=== PATIENT | female | born 1990 | race African-American/Black ===

== ENCOUNTER 2017-09-30 19:42 | Emergency (ER) | payer SELFPAY ==
[2017-09-30 20:06] VITALS: BP 110/62
--- NOTE | 2017-09-30 20:20 | EDM.PDOC ---
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 She landed hard on her but talks. She is known to be about 9 weeks gestation. When she got home and voided on wiping she appreciated bleeding per vagina. This is bright red and shortened thereafter started to develop some lower abdominal menstrual-like cramping pain. The thus far has essentially been complicated. No previous spotting or bleeding. She is nauseated often will have emesis in the evenings. Rapid 2 para 1 with one term delivery. She is currently seeing Dr. Muhammad as her up to nutrition. Last visit was a couple weeks ago which time he confirm the and dated it. She is due May 02, 2018. Currently she rates her pain as a 1 or 2 as far as the abdominal cramping is going . Onset: Today Onset Date: 09/30/17 Onset Time: 19:30 Duration: Minutes: Location: Reports: Other (BI-RADS bleeding per vagina) Quality: Reports: Other (Mild abdominal cramping pain.) Severity: Mild (Menstrual-like) Improves with: Reports: None Worsens with: Reports: None Context: Reports: Other (Noted bright red bleeding per vagina small quantity since she fell directly on her but talks at 1930 hrs. tonight. Associated development of mild lower abdominal cramping pain) Associated Symptoms: Reports: No Other Symptoms Treatments HYGIENE COORDINATOR: Reports: Other (see below) (None.) Pelvic Pain Score (Numeric/FACES): 2 - Related Data Allergies Allergy/AdvReac Type Severity Reaction Status Date / Time No Known Allergies Allergy Verified 09/30/17 20:06 Home Meds: Home Meds Progesterone,Micronized [Crinone] 1.125 gm VG BID 09/30/17 [History] oxyCODONE HCl/Acetaminophen [Percocet 5-325 mg Tablet] 1 - 2 each PO Q4H PRN # 16 tablet 09/30/17 [Rx] Past Medical History - Past Health History Medical/Surgical History: Denies 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 has fracture of the right foot and had surgery on the foot on . - Past Surgical History Musculoskeletal Surgical History: Reports: ORIF Social & Family History - Tobacco Use Smoking Status *Q: Never Smoker Second Hand Smoke Exposure: No - Caffeine Use Caffeine Use: Reports: Coffee, Soda - Alcohol Use Days Per Week of Alcohol Use: 0 - Recreational Drug Use Recreational Drug Use: No - Living Situation & Occupation Living situation: Reports: Single, with Significant Other, with Family Occupation: Unemployed ED ROS GENERAL - Review of Systems Review Of Systems: See Below HEENT: Reports: No Symptoms Respiratory: Reports: No Symptoms Cardiovascular: Reports: No Symptoms Endocrine: Reports: Fatigue GI/Abdominal: Reports: Abdominal Pain (Lower abdominal pain that developed tonight with associated spotting per vagina menstrual-like cramping. [place] mostly suprapubically. Nontender back) : Reports: Frequency, Other (Currently estimated to be 9 weeks .). Denies: Incontinence, Irregular Menses, Pain, Urgency, Urinary Retention Musculoskeletal: Reports: Other (Mild pain buttocks--left side greater than right where she fell tonight.) Neurological: Reports: No Symptoms Psychiatric: Reports: No Symptoms Hematologic/Lymphatic: Reports: No Symptoms Immunologic: Reports: No Symptoms ED EXAM - Physical Exam Exam: See Below Exam Limited By: No Limitations General Appearance: Alert, WD/WN, Anxious, Mild Distress Respiratory/Chest: No Respiratory Distress, Lungs Clear, Normal Breath Sounds, No Accessory Muscle Use, Chest Non-Tender Cardiovascular: Normal Peripheral Pulses, Regular Rate, Rhythm, No Edema, No Gallop, No Murmur, No Rub GI/Abdominal Exam: Normal Bowel Sounds, Soft, Non-Tender, No Organomegaly, No Abnormal Bruit, No Mass, Pelvis Stable (Female) Exam: Normal External Exam, Enlarged Uterus (Uterus is 9 weeks gestation clinically anteverted), Vaginal Bleeding (Scant bright red blood appreciated on gloved finger.). No: Cervical Dilatation (Cervix is closed) Heart Tones: Not Stephens (With stethoscope. She will be going for transvaginal ultrasound) Back Exam: Normal Inspection, Full Range of Motion. No: CVA Tenderness (L), CVA Tenderness (R) Extremities: Normal Inspection, Normal Range of Motion, Non-Tender, No Pedal Edema Neurological: Alert, Oriented, CN II-XII Intact, Normal Cognition, Normal Gait Course - Vital Signs Last Recorded V/S: Last Vital Signs Temp 36.0 C 09/30/17 20:03 Pulse 73 09/30/17 20:03 Resp 16 09/30/17 20:03 BP 110/62 09/30/17 20:03 Pulse Ox 100 09/30/17 20:03 - Orders/Labs/Meds Orders: Active Orders 24 hr Category Date Time Status OB Transvaginal [US] Stat Exams 09/30/17 20:12 Taken Labs: Laboratory Tests 09/30/17 09/30/17 09/30/17 Range/Units 20:35 20:37 20:37 WBC 8.30 (3.98-10.04) K/mm3 RBC 4.60 (3.98-5.22) M/mm3 Hgb 13.4 (11.2-15.7) gm/L Hct 38.7 (34.1-44.9) % MCV 84.1 (79.4-94.8) fl MCH 29.1 (25.6-32.2) pg MCHC 34.6 (32.2-35.5) g/dl RDW Std Deviation 42.5 (36.4-46.3) fL Plt Count 283 (182-369) K/mm3 MPV 10.2 (9.4-12.3) fl Neutrophils % (Manual) 50 (40-60) % Band Neutrophils % 0 (0-10) % Lymphocytes % (Manual) 34 (20-40) % Atypical Lymphs % 3 % Monocytes % (Manual) 8 (2-10) % Eosinophils % (Manual) 4 (0.7-5.8) % Basophils % (Manual) 1 (0.1-1.2) Platelet Estimate Adequate Plt Morphology Comment Normal RBC Morph Comment Normal Sodium 139 (136-145) mEq/L Potassium 3.3 L (3.5-5.1) mEq/L Chloride 104 (98-107) mEq/L Carbon Dioxide 22 (21-32) mEq/L Anion Gap 16.3 H (5-15) BUN 11 (7-18) mg/dL Creatinine 0.8 (0.55-1.02) mg/dL Est Cr Clr Drug Dosing 101.81 mL/min Estimated GFR (MDRD) > 60 (>60) mL/min BUN/Creatinine Ratio 13.8 L (14-18) Glucose 92 (74-106) mg/dL Calcium 9.6 (8.5-10.1) mg/dL Total Bilirubin 0.3 (0.2-1.0) mg/dL AST 14 L (15-37) U/L ALT 15 (14-59) U/L Alkaline Phosphatase 55 (46-116) U/L Total Protein 7.5 (6.4-8.2) g/dl Albumin 3.9 (3.4-5.0) g/dl Globulin 3.6 gm/dL Albumin/Globulin Ratio 1.1 (1-2) HCG, Quant 1877.0 mIU/mL Urine Color Yellow (Yellow) Urine Appearance Clear (Clear) Urine pH 6.0 (5.0-8.0) Ur Specific [place] > or = 1.030 (1.005-1.030) Urine Protein Negative (Negative) Urine Glucose (UA) Negative (Negative) Urine Ketones 2+ H (Negative) Urine Occult Blood 2+ H (Negative) Urine Nitrite Negative (Negative) Urine Bilirubin Negative (Negative) Urine Urobilinogen 0.2 (0.2-1.0) Ur Leukocyte Esterase Negative (Negative) Urine RBC 0-5 (0-5) /hpf Urine WBC 0-5 (0-5) /hpf Ur Epithelial Cells 0-5 (0-5) /hpf Urine Bacteria Few (FEW) /hpf Urine Mucus Moderate H (FEW) /hpf Blood Type 09/30/17 Range/Units 20:37 WBC (3.98-10.04) K/mm3 RBC (3.98-5.22) M/mm3 Hgb (11.2-15.7) gm/L Hct (34.1-44.9) % MCV (79.4-94.8) fl MCH (25.6-32.2) pg MCHC (32.2-35.5) g/dl RDW Std Deviation (36.4-46.3) fL Plt Count (182-369) K/mm3 MPV (9.4-12.3) fl Neutrophils % (Manual) (40-60) % Band Neutrophils % (0-10) % Lymphocytes % (Manual) (20-40) % Atypical Lymphs % % Monocytes % (Manual) (2-10) % Eosinophils % (Manual) (0.7-5.8) % Basophils % (Manual) (0.1-1.2) Platelet Estimate Plt Morphology Comment RBC Morph Comment Sodium (136-145) mEq/L Potassium (3.5-5.1) mEq/L Chloride (98-107) mEq/L Carbon Dioxide (21-32) mEq/L Anion Gap (5-15) BUN (7-18) mg/dL Creatinine (0.55-1.02) mg/dL Est Cr Clr Drug Dosing mL/min Estimated GFR (MDRD) (>60) mL/min BUN/Creatinine Ratio (14-18) Glucose (74-106) mg/dL Calcium (8.5-10.1) mg/dL Total Bilirubin (0.2-1.0) mg/dL AST (15-37) U/L ALT (14-59) U/L Alkaline Phosphatase (46-116) U/L Total Protein (6.4-8.2) g/dl Albumin (3.4-5.0) g/dl Globulin gm/dL Albumin/Globulin Ratio (1-2) HCG, Quant mIU/mL Urine Color (Yellow) Urine Appearance (Clear) Urine pH (5.0-8.0) Ur Specific [place] (1.005-1.030) Urine Protein (Negative) Urine Glucose (UA) (Negative) Urine Ketones (Negative) Urine Occult Blood (Negative) Urine Nitrite (Negative) Urine Bilirubin (Negative) Urine Urobilinogen (0.2-1.0) Ur Leukocyte Esterase (Negative) Urine RBC (0-5) /hpf Urine WBC (0-5) /hpf Ur Epithelial Cells (0-5) /hpf Urine Bacteria (FEW) /hpf Urine Mucus (FEW) /hpf Blood Type B POSITIVE - Radiology Interpretation Free Text/Narrative:: 18-year-old female who is 2 para 1 presents the ED with bright red bleeding per vagina mild amount tonight after slip and fall on the ice outside of the local grocery store. She landed hard primarily on her but talk left side greater than the right without any significant bony injuries. She states when she got home there was some bright red bleeding per vagina when she voided. She developed low abdominal menstrual-like cramps which she rates is 1-2 out of 10 for pain. She has had patency confirmed by ultrasound with a date of confinement set at May 02, 2018. This would make her about 9 weeks and 3 days gestation at this time. Examination shows the cervix to be closed uterus is appropriate size. Some scant amount of bright red blood noted on gloved finger. Plan routine labs including a quantitative beta-hCG type and screen and a transvaginal ultrasound to confirm viability. - Re-Assessments/Exams Free Text/Narrative Re-Assessment/Exam: 09/30/17 21:43 beta-hCG value is low at 1855. The special equipment technician identified a gestation of 9 weeks and 2 days with no heart tones evident. I do not have confirmation from radiology at this time. However the low beta-hCG strongly suggests demise. Blood type is B+. 09/30/17 21:58 radiologist from the red did call back and indicated that there is demise with no heart tones evident. This would correlate with a very low beta-hCG. Patient and counseled in this regard. She is likely to experience increasing lower abdominal cramping pain and heavy vaginal flow. If she soaks more than 2 consecutive pads per hour she is to return to the ED or follow up with Dr. Muhammad our district adviser consulting analyst. Departure - Departure Time of Disposition: 21:59 Disposition: Home, Self-Care 01 Condition: Fair Clinical Impression: demise, Inevitable - Discharge Information Prescriptions: oxyCODONE HCl/Acetaminophen [Percocet 5-325 mg Tablet] 1 - 2 each PO Q4H PRN # 16 tablet PRN Reason: pain relief. Instructions: Miscarriage, [id number] Referrals: PCP,None [Primary Care Provider] - Forms: ED Department Discharge Additional Instructions: Evaluation the emergency room carried out tonight after you fell the ice and landed hard on your but talks. When she got home you identified that there was some bleeding coming from the vagina. On assessment the cervix was closed with uterus felt to be about 9 weeks in size. Lab work however reveals a very low amount of hormone in your bloodstream much lower than one would anticipate for being 9 weeks . A transvaginal ultrasound has been completed and unfortunately indicates that there is no heartbeat indicating what we call demise. This is most often caused by genetic abnormalities of the fetus which mother nature as determined is not compatible with life and essentially turns off the . Therefore you were going to go onto a miscarriage with increasing lower abdominal cramping pain and bleeding per vagina. Sometimes this bleeding can be very heavy and we have to intervene by way of a D&C to take out the products of conception from the uterus under anesthesia. If the bleeding increases per vagina to soak a pad every hour for 2 consecutive hours this means that there is significant bleeding and you would need to return either to the ED or follow up with her district adviser in the clinic. I would suggest arranging follow-up appoint with Dr. Muhammad tomorrow afternoon if possible. May use Advil 600 mg every 6 hours for abdominal cramping pain and if needed may use stronger pain medication Percocet 5/325 mg tablets one or 2 every 4-6 hours for pain not controlled by Motrin alone. - My Orders Last 24 Hours: My Active Orders 09/30/17 20:12 OB Transvaginal [US] Stat - Assessment/Plan Last 24 Hours: My Active Orders 09/30/17 20:12 OB Transvaginal [US] Stat
--- NOTE | 2017-10-01 12:48 | US ---
First trimester obstetrical ultrasound: Multiple real-time images were obtained transvaginally. Comparison: Previous study of 09/10/17. Single intrauterine gestation is seen. Amniotic fluid volume is normal. No heart activity is identified within the embryo. [place]-rump length correlates to a mean gestational age of 8 weeks 3 days Maternal adnexa are unremarkable. Minimal free fluid is seen within the pelvis which is felt to be incidental. Impression: 1. [place]-rump length correlates to gestational age of 8 weeks 3 days. No heart activity is seen and findings are compatible with nonviable . Diagnostic code #5 Agree with preliminary report issued by [facility] ([facility] preliminary report dictated on 09/30/17, 10:55 PM Central Time) [facility]
== END 2017-09-30 22:20 | disposition home or self-care (01) ==
LOC: JD.ED 19:42
DX: O03.9 Complete or unspecified spontaneous abortion without complication (principal); W01.0XXA Fall on same level from slipping, tripping and stumbling without subsequent striking against object, initial encounter
CPT/HCPCS: 36415; 76817; 76817-26; 80053; 81001; 84702; 85025; 86900; 86901; 99283; 99284-25

== ENCOUNTER 2017-10-09 10:37 | Day surgery (SDC) | payer SELFPAY ==
[2017-10-09] MEDS ORDERED: Sodium Chloride 0.9% 10 ML Syringe FLUSH PRN (10:58)
[2017-10-09] MEDS ORDERED: Lidocaine 1%/Sod Bicarbonate in NS 8.4% 1 ML Syringe IV PRN (10:58)
[2017-10-09] MEDS ORDERED: Lactated Ringers 1,000 ML IV SCH (11:00)
--- NOTE | 2017-10-09 11:09 | PCM.PREANE ---
Preanesthetic Assessment - Anesthesia/Transfusion/Family Hx Anesthesia History: Prior Anesthesia Without Reaction Family History of Anesthesia Reaction: No Transfusion History: No Prior Transfusion(s) Intubation History: Unknown - Review of Systems General: No Symptoms Pulmonary: No Symptoms Cardiovascular: No Symptoms Gastrointestinal: No Symptoms Neurological: Other (Lower back pain, does not radiate to legs. ) Other: Reports: None - Physical Assessment NPO Status Date: 10/09/17 NPO Status Time: 08:00 (4 oz water) Pulse: 77 O2 Sat by Pulse Oximetry: 98 Respiratory Rate: 16 Blood Pressure: 116/52 Temperature: 36.6 C Weight: 88.9 kg ASA Class: 1 Mental Status: Alert & Oriented x3 Airway Class: Mallampati = 1 Dentition: Reports: Normal Dentition Thyro-Mental Finger Breadths: 3 Mouth Opening Finger Breadths: 3 ROM/Head Extension: Full Lungs: Clear to Auscultation, Normal Respiratory Effort Cardiovascular: Regular Rate, Regular Rhythm - Lab Values: Laboratory Last Values WBC 7.59 K/mm3 (3.98-10.04) 10/09/17 10:55 RBC 4.80 M/mm3 (3.98-5.22) 10/09/17 10:55 Hgb 13.9 gm/L (11.2-15.7) 10/09/17 10:55 Hct 40.5 % (34.1-44.9) 10/09/17 10:55 MCV 84.4 fl (79.4-94.8) 10/09/17 10:55 MCH 29.0 pg (25.6-32.2) 10/09/17 10:55 MCHC 34.3 g/dl (32.2-35.5) 10/09/17 10:55 RDW Std Deviation 42.1 fL (36.4-46.3) 10/09/17 10:55 Plt Count 304 K/mm3 (182-369) 10/09/17 10:55 MPV 9.9 fl (9.4-12.3) 10/09/17 10:55 Neut % (Auto) 52.2 % (34.0-71.1) 10/09/17 10:55 Lymph % (Auto) 34.1 % (19.3-51.7) 10/09/17 10:55 [place] % (Auto) 7.5 % (4.7-12.5) 10/09/17 10:55 Eos % (Auto) 4.6 (0.7-5.8) 10/09/17 10:55 Baso % (Auto) 1.1 % (0.1-1.2) 10/09/17 10:55 Neut # (Auto) 3.96 K/mm3 (1.56-6.13) 10/09/17 10:55 Lymph # (Auto) 2.59 K/mm3 (1.18-3.74) 10/09/17 10:55 [place] # (Auto) 0.57 K/mm3 (0.24-0.36) H 10/09/17 10:55 Eos # (Auto) 0.35 K/mm3 (0.04-0.36) 10/09/17 10:55 Baso # (Auto) 0.08 K/mm3 (0.01-0.08) 10/09/17 10:55 - Allergies Allergies/Adverse Reactions: Allergies Allergy/AdvReac Type Severity Reaction Status Date / Time No Known Allergies Allergy Verified 10/08/17 13:51 - Acknowledgements Anesthesia Type Planned: MAC Pt an Appropriate Candidate for the Planned Anesthesia: Yes Alternatives and Risks of Anesthesia Discussed w Pt/Guardian: Yes Pt/Guardian Understands and Agrees with Anesthesia Plan: Yes PreAnesthesia Questionnaire - Past Health History Medical/Surgical History: Denies 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 [No Known Home Meds] 10/08/17 [History] - CURRENT (IN HOUSE) MEDS Current Meds: Current Medications Lactated Ringer's (Ringers, Lactated) 1,000 mls @ 125 mls/hr IV ASDIRECTED ARLENE Stop: 10/09/17 23:00 Lidocaine/Sodium Bicarbonate (Buffered Lidocaine 1% In Ns 8.4%) 0.25 ml IV ONETIME PRN PRN Reason: Prior to IV Start Stop: 10/09/17 18:00 Sodium Chloride (Saline Flush) 10 ml FLUSH ASDIRECTED PRN PRN Reason: Keep Vein Open Stop: 10/09/17 18:00
[2017-10-09] MEDS ORDERED: Propofol 200 MG/20 ML SDV ONE (12:24)
[2017-10-09] MEDS ORDERED: Midazolam 1 MG/ML 2 ML SDV ONE (12:25)
[2017-10-09] MEDS ORDERED: fentaNYL 250 MCG/5 ML SDV ONE (12:25)
[2017-10-09] MEDS ORDERED: Lidocaine 1% 4 ML ONE (12:25)
[2017-10-09] MEDS ORDERED: Ondansetron 4 MG/2 ML SDV ONE (12:25)
[2017-10-09] MEDS ORDERED: Dexamethasone 4 MG/ML 5 ML MDV ONE (12:25)
[2017-10-09] MEDS ORDERED: Ketamine 500 mg/10 ML MDV ONE (12:25)
--- NOTE | 2017-10-09 12:53 | PCM.OPNOTE ---
- General Post-Op/Procedure Note Date of Surgery/Procedure: 10/09/17 Operative Procedure(s): Dilatation and curettage missed first trimester Pre Op Diagnosis: Missed first trimester Post-Op Diagnosis: Same Anesthesia Technique: MAC Primary Surgeon: Ibrahima Muhammad Anesthesia Provider: Trish Zamorano Reason Grocery Caddy Was Necessary: Not applicable Role of Grocery Caddy: Not applicable Fluid Replacement, Intraop: 500 Output, Urine Amount: 0 (voided preop no catheter) EBL in mLs: 5 Drain/Tube Comments:: None Complications: None Condition: Good Free Text/Narrative:: Patient was transported to operating room #2 and placed under Efren anesthesia in the low dorsal lithotomy position and prepared and draped in a sterile fashion timeout performed confirming name date of and procedure as D&C for missed first trimester. Ancef 2 g had been given intravenously preop. Examination under anesthesia revealed uterus to reapproximate 6-7 weeks size. The cervical os was carefully dilated to #8 Hegar and #8 curved suction cannula inserted and suction performed without difficulty followed by gentle sharp curettage followed by repeat suction scant amount of tissue was obtained patient had most likely passed most of the missed after having received 2 doses of Cytotec. Rh+. Patient transported postanesthesia care unit in satisfactory condition. She'll use Tylenol or Motrin for pain. Has follow-up appointment in 2 weeks. Quantitative hCG preop today was 20 decreased from yesterday at 27. Decreased from Thursday at 50.
--- NOTE | 2017-10-09 13:01 | PCM48HPAN ---
Post Anesthesia Note - EVALUATION WITHIN 48HRS OF ANESTHETIC Vital Signs in Normal Range: Yes Patient Participated in Evaluation: Yes Respiratory Function Stable: Yes Airway Patent: Yes Cardiovascular Function Stable: Yes Hydration Status Stable: Yes Pain Control Satisfactory: Yes Nausea and Vomiting Control Satisfactory: Yes Mental Status Recovered: Yes
[2017-10-09 13:43] VITALS: BP 110/62
== END 2017-10-09 14:05 | disposition home or self-care (01) ==
LOC: JD.SDS 10:37
PROVIDERS: ATTEND Obstetrics & Gynecology
DX: O02.1 Missed abortion (principal)
CPT/HCPCS: 36415; 59820; 84702; 85025; J1100; J2250; J2405; J3010; J7120; 01965; J2001; J2704

== ENCOUNTER 2019-03-02 19:18 | Emergency (ER) | payer OTHER, SELFPAY ==
--- NOTE | 2019-03-02 19:55 | EDM.PDOCBH ---
ED HPI GENERAL MEDICAL PROBLEM - General Chief Complaint: Drug or Alcohol Abuse Stated Complaint: OD ON MEDICATION Time Seen by Provider: 03/02/19 19:31 Source of Information: Reports: Patient, RN Notes Reviewed History Limitations: Reports: No Limitations - History of Present Illness INITIAL COMMENTS - FREE TEXT/NARRATIVE: The patient states that she has been suffering from depression, with thoughts of killing herself on and off ever since she delivered a baby about 5 months ago. She states that she had her boyfriend have been arguing a lot. There is no history of violence. She was treated with bupropion from September 2018 through November 2018 per her Graphics Specialist, then switched to sertraline 25 mg daily per her PCP on 12/02/2018, however, she does not feel that it has been helping. She acknowledges that she has not discussed the lack of benefit with her prescriber. The patient states that she stayed home from work today, after having thoughts of killing herself again. She states that she sent her children to a bioprocess development engineer , then took 13 or 14 sertraline 25 mg around 15:00 to 16:00. She denies coingestion with any other drugs or alcohol. She states that this was a suicide attempt, and she hoped that it would be a fatal dose. Around 19:00, however, she changed her mind when she realized that she might not see her children again , therefore she drove herself to the ED. The patient denies prior attempt at self-harm, and she states that she has never been psychiatrically hospitalized. The patient's PCP is FARIDEH Mendez. Her Graphics Specialist is Dr. Ibrahima Muhammad. 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: Fibroids, , Spontaneous Musculoskeletal History: Reports: Fracture (right tib/fib) Psychiatric History: Reports: Depression - Past Surgical History Musculoskeletal Surgical History: Reports: ORIF (right tib/fib) Social & Family History - Family History Family Medical History: Noncontributory - Tobacco Use Smoking Status *Q: Never Smoker - Caffeine Use Caffeine Use: Reports: Coffee, Soda, Tea - Alcohol Use Alcohol Use History: Yes Alcohol Use Frequency: Socially - Recreational Drug Use Recreational Drug Use: No - Living Situation & Occupation Living situation: Reports: Single, with Significant Other (Boyfriend), with Family (2 daughters) 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 ED EXAM, BEHAVIORAL HEALTH - Physical Exam Exam: See Below Exam Limited By: No Limitations General Appearance: Alert, WD/WN, No Apparent Distress, Anxious Eye Exam: Bilateral Eye: EOMI, Normal Inspection Ears: Normal External Exam, Hearing Grossly Normal Nose: Normal Inspection Throat/Mouth: Normal Inspection, Normal Lips, Normal Voice, No Airway Compromise Head: Atraumatic, Normocephalic Neck: Normal Inspection, Full Range of Motion Respiratory/Chest: No Respiratory Distress, Lungs Clear, Normal Breath Sounds, No Accessory Muscle Use Cardiovascular: Normal Peripheral Pulses, No Edema, No Gallop, No JVD, No Murmur , No Rub, Tachycardia (regular) GI/Abdominal: Normal Bowel Sounds, Soft, Non-Tender, No Organomegaly, No Distention, No Abnormal Bruit, No Mass (Female) Exam: Deferred Rectal (Female) Exam: Deferred Back Exam: Normal Inspection, Full Range of Motion, NT Extremities: Normal Inspection, Normal Range of Motion, No Pedal Edema, Normal Capillary Refill Neurological: Alert, Normal Cognition, No Motor/Sensory Deficits, Oriented x 3 Psychiatric: Other (Appears anxious) Skin Exam: Warm, Dry, Intact, Normal color, No rash EKG INTERPRETATION EKG Date: 03/02/19 Time: 07:28 Rhythm: Other (Sinus tachycardia) Rate (Beats/Min): 127 [place]: LAD-Left [place] Deviation (2 LAFB) P-Wave: Present QRS: Normal (Late transition) ST-T: Normal QT: Normal Comparison: NA - No Prior EKG COURSE, BEHAVIORAL HEALTH COMP - Course Vital Signs: Last Vital Signs Temp 36.8 C 03/02/19 19:29 Pulse 131 H 03/02/19 19:29 Resp 24 H 03/02/19 19:29 BP 140/89 03/02/19 19:29 Pulse Ox 99 03/02/19 19:29 Orders, Labs, Meds: Active Orders 24 hr Category Date Time Status EKG Documentation Completion [RC] STAT Care 03/02/19 19:41 Active EKG Documentation Completion [RC] STAT Care 03/02/19 22:28 Active Laboratory Tests 03/02/19 03/02/19 03/02/19 Range/Units 19:35 19:35 19:35 WBC 7.69 (3.98-10.04) K/mm3 RBC 5.43 H (3.98-5.22) M/mm3 Hgb 15.7 D (11.2-15.7) gm/L Hct 45.9 H (34.1-44.9) % MCV 84.5 (79.4-94.8) fl MCH 28.9 (25.6-32.2) pg MCHC 34.2 (32.2-35.5) g/dl RDW Std Deviation 41.6 (36.4-46.3) fL Plt Count 336 (182-369) K/mm3 MPV 10.0 (9.4-12.3) fl Neutrophils % (Manual) 46 (40-60) % Band Neutrophils % 1 (0-10) % Lymphocytes % (Manual) 48 H (20-40) % Atypical Lymphs % 0 % Monocytes % (Manual) 2 (2-10) % Eosinophils % (Manual) 2 (0.7-5.8) % Basophils % (Manual) 1 (0.1-1.2) Platelet Estimate Adequate RBC Morph Comment Normal Sodium 139 (136-145) mEq/L Potassium 2.9 L (3.5-5.1) mEq/L Chloride 102 (98-107) mEq/L Carbon Dioxide 20 L (21-32) mEq/L Anion Gap 19.9 H (5-15) BUN 10 (7-18) mg/dL Creatinine 1.0 (0.55-1.02) mg/dL Est Cr Clr Drug Dosing 79.99 mL/min Estimated GFR (MDRD) > 60 (>60) mL/min BUN/Creatinine Ratio 10.0 L (14-18) Glucose 134 H (74-106) mg/dL Calcium 8.9 (8.5-10.1) mg/dL Magnesium (1.8-2.4) mg/dl Total Bilirubin 0.5 (0.2-1.0) mg/dL AST 25 (15-37) U/L ALT 33 (14-59) U/L Alkaline Phosphatase 77 (46-116) U/L Total Protein 8.3 H (6.4-8.2) g/dl Albumin 4.1 (3.4-5.0) g/dl Globulin 4.2 gm/dL Albumin/Globulin Ratio 1.0 (1-2) TSH 3rd Generation 5.845 H (0.358-3.74) uIU/mL Urine HCG, Qual (NEGATIVE) Salicylates 1.1 L (2.8-20) mg/dL Urine Opiates Screen (BBNAMW=441) Ur Buprenorphine Scrn (CUTOFF=10) Ur Oxycodone Screen (NLC3TC=585) Urine Methadone Screen (CYWISI=421) Ur Propoxyphene Screen (NFWLUG=218) Acetaminophen 0 L (10-30) ug/mL Ur Barbiturates Screen (VHYDTH=464) Ur Tricyclics Screen (JAELJY=724) Ur Phencyclidine Scrn (CUTOFF=25) Ur Amphetamine Screen (VCWJDS=218) U Methamphetamines Scrn (DOFUMK=793) U Benzodiazepines Scrn (IGTBSP=361) U Cocaine Metab Screen (DLZFBQ=896) U Marijuana (THC) Screen (CUTOFF=50) Ethyl Alcohol 0.00 (0.00) gm% 03/02/19 03/02/19 03/02/19 Range/Units 20:20 20:20 22:43 WBC (3.98-10.04) K/mm3 RBC (3.98-5.22) M/mm3 Hgb (11.2-15.7) gm/L Hct (34.1-44.9) % MCV (79.4-94.8) fl MCH (25.6-32.2) pg MCHC (32.2-35.5) g/dl RDW Std Deviation (36.4-46.3) fL Plt Count (182-369) K/mm3 MPV (9.4-12.3) fl Neutrophils % (Manual) (40-60) % Band Neutrophils % (0-10) % Lymphocytes % (Manual) (20-40) % Atypical Lymphs % % Monocytes % (Manual) (2-10) % Eosinophils % (Manual) (0.7-5.8) % Basophils % (Manual) (0.1-1.2) Platelet Estimate RBC Morph Comment Sodium 141 (136-145) mEq/L Potassium 3.8 (3.5-5.1) mEq/L Chloride 106 (98-107) mEq/L Carbon Dioxide 22 (21-32) mEq/L Anion Gap 16.8 H (5-15) BUN 9 (7-18) mg/dL Creatinine 0.9 (0.55-1.02) mg/dL Est Cr Clr Drug Dosing 88.88 mL/min Estimated GFR (MDRD) > 60 (>60) mL/min BUN/Creatinine Ratio 10.0 L (14-18) Glucose 113 H (74-106) mg/dL Calcium 8.8 (8.5-10.1) mg/dL Magnesium 1.6 L (1.8-2.4) mg/dl Total Bilirubin (0.2-1.0) mg/dL AST (15-37) U/L ALT (14-59) U/L Alkaline Phosphatase (46-116) U/L Total Protein (6.4-8.2) g/dl Albumin (3.4-5.0) g/dl Globulin gm/dL Albumin/Globulin Ratio (1-2) TSH 3rd Generation (0.358-3.74) uIU/mL Urine HCG, Qual Negative (NEGATIVE) Salicylates (2.8-20) mg/dL Urine Opiates Screen Negative (VZPQNY=897) Ur Buprenorphine Scrn Negative (CUTOFF=10) Ur Oxycodone Screen Negative (OMI3BQ=370) Urine Methadone Screen Negative (HEXREK=634) Ur Propoxyphene Screen Negative (QEIVKW=600) Acetaminophen (10-30) ug/mL Ur Barbiturates Screen Negative (GGQPHO=305) Ur Tricyclics Screen Negative (BNJXFM=855) Ur Phencyclidine Scrn Negative (CUTOFF=25) Ur Amphetamine Screen Negative (XOVCQM=666) U Methamphetamines Scrn Negative (ERKOSO=209) U Benzodiazepines Scrn Negative (EUHSNM=987) U Cocaine Metab Screen Negative (DDDCYZ=617) U Marijuana (THC) Screen Negative (CUTOFF=50) Ethyl Alcohol (0.00) gm% Medications Discontinued Medications Generic Name Dose Route Start Last Admin Trade Name Freq PRN Reason Stop Dose Admin Lactated Ringer's 1,000 mls @ 999 mls/hr 03/02/19 21:21 03/02/19 21:35 Ringers, Lactated IV 05/22/19 22:21 999 mls/hr .BOLUS ONE Administration Magnesium Sulfate 2 gm/ Premix 50 mls @ 50 mls/hr 03/02/19 23:15 03/02/19 23: 41 IV 03/03/19 00:14 50 mls/hr ONETIME ONE Administration Potassium Chloride 40 meq 03/02/19 21:21 03/02/19 21:35 Klor-Con M20 PO 03/02/19 21:22 40 meq ONETIME ONE Administration Medical Clearance: 03/02/19 20:20 Case discussed with Poison Control at 20:17. The patient's total sertraline dose was 325 to 350 milligrams; anything over 250 mg is getting into a toxic level, therefore she does need to be observed. Peak effect is 8 hours post- ingestion, which would be around 23:00 to midnight tonight. We will need to watch for QT prolongation (her initial ECG shows no QT prolongation.) We may treat her anxiety with benzodiazepines as needed. 03/02/19 21:21 The patient's CBC is unremarkable. The patient's CMP is remarkable for potassium depressed at 2.9 with a bicarbonate depressed at 20 with an anion gap elevated at 19.9. Her blood glucose is slightly elevated at 134. The remainder of her CMP is unremarkable. The patient's acetaminophen level is 0. The patient's salicylate level is not elevated. The patient's alcohol level is 0. The patient's TSH is elevated at 5.845. The patient's urine drug screen is negative. The patient's urine test is negative. I have ordered 1 L of lactated Ringer's and 40 mEq of oral potassium. 03/02/19 22:28 It has been about an hour since the patient received the oral potassium and IV fluid. I have ordered a BMP and magnesium level to check the progress, along with a repeat ECG, to monitor the QTc. 03/02/19 22:55 Repeat ECG at 22:32 demonstrates a normal sinus rhythm at 89 bpm. No AV block. No atrial enlargement. No ischemic changes. Normal transition. There is left axis deviation, most likely secondary to a left anterior fascicular block. No LVH or RVH. No intraventricular conduction delays. The QTc is within normal limits. 03/02/19 23:15 The patient's BMP returned essentially normal - she does not require additional potassium or IV fluid, however, her magnesium level returned low at 1.6. I have therefore ordered a 2 g Mg-rider. 03/03/19 01:[address] Peguero, Psychiatrist at [facility], at 01:03. He believes that the patient would benefit from psychiatric hospitalization, and agreed to direct admission to their hospital, for diagnosis of mood disorder and suicidal behavior. The patient will need to be transported by the [facility]'s department , therefore I will need to put her under a 24-hour hold. Departure - Departure Time of Disposition: 01:08 Disposition: DC/Tfer to Psych Hosp/Unit 65 Condition: Good Clinical Impression: Suicide attempt, Elevated TSH, Hypokalemia, Hypomagnesemia, High anion gap metabolic acidosis - Discharge Information *PRESCRIPTION DRUG MONITORING PROGRAM REVIEWED*: Not Applicable *COPY OF PRESCRIPTION DRUG MONITORING REPORT IN PATIENT VARSHA: Not Applicable Referrals: Seda Owens PA-C [Physician Wet Inspector [employer]] - Ibrahima Muhammad MD [Physician] - - My Orders Last 24 Hours: My Active Orders 03/02/19 19:41 EKG Documentation Completion [RC] STAT 03/02/19 22:28 EKG Documentation Completion [RC] STAT - Assessment/Plan Last 24 Hours: My Active Orders 03/02/19 19:41 EKG Documentation Completion [RC] STAT 03/02/19 22:28 EKG Documentation Completion [RC] STAT
[2019-03-02 20:27] LABS: ACETAMINOPHEN 0 ug/mL (10-30)
[2019-03-02] MEDS ORDERED: Potassium Chloride 20 MEQ Tab.ER PO ONE (21:21)
[2019-03-02] MEDS ORDERED: Lactated Ringers 1,000 ML IV ONE (21:21)
[2019-03-02] MEDS ORDERED: Magnesium Sulfate/Water 2 GM in Premix Bag 1 BAG IV ONE (23:15)
[2019-03-03 10:55] VITALS: BP 133/73
== END 2019-03-03 10:53 ==
LOC: JD.ED 19:18
DX: T43.222A Poisoning by selective serotonin reuptake inhibitors, intentional self-harm, initial encounter (principal); E87.6 Hypokalemia; E83.42 Hypomagnesemia; R94.6 Abnormal results of thyroid function studies; E87.2 Acidosis
CPT/HCPCS: 36415; 80048; 80053; 80306; 81025; 83735; 84443; 85007; 85027; 93005; 96361; 96365; 99285; A9270; G0480; J3475; J7120; 93010; 99283

== ENCOUNTER 2019-08-08 15:56 | Emergency (ER) | payer SELFPAY ==
[2019-08-08 16:07] VITALS: BP 151/79; PULSE 90
--- NOTE | 2019-08-08 17:21 | EDM.PDOCBH ---
ED HPI GENERAL MEDICAL PROBLEM - General Chief Complaint: Behavioral/Psych Stated Complaint: DEPRESSION Time Seen by Provider: 08/08/19 17:20 Source of Information: Reports: Patient History Limitations: Reports: No Limitations - History of Present Illness INITIAL COMMENTS - FREE TEXT/NARRATIVE: 28-year-old female of -[place] ancestry presents to the ED with auditory hallucinations that started on August 06. Patient reports that a year ago she had a BB and developed depression that she did not recognize. In February of this year she became strongly suicidal and had to seek psychiatric care in [place]. He has thus been on Pristiq 50 mg daily and trazodone 50 mg at bedtime to helps with depression which is worked very well. However she reports that she is starting to feel like she doesn't need sleep. That she doesn't need to eat. She has many signs and symptoms of hypomania. She hasn't slept at all for the last 4 days. She has never expressed auditory hallucinations before. She denies using drugs or alcohol. Of interest she's also started phentermine 37.5 mg as a weight reducing agent about 2 months ago. It is helping her lose weight. However the stimulant effect may well be a cause of her current above symptomatology. Patient states she's been very faithful in taking the Pristiq and trazodone as prescribed. She states the baby sleeps for the most part throughout the night perhaps wakes up once for diaper change in a bottle. She feels up until a week ago she was getting adequate sleep. Onset: Sudden (Loss of sleep for the last 4 days with the development of auditory hallucinations on August 06. They're basically voices that tell her that she is a bad mother. That she should have done the dishes. That she should've vacuumed that she should've looked after the baby better etc. She has no strong suicidal ideation or intent. The voices are not telling to harm herself or anyone else.) Onset Date: 08/05/19 (No sleep for the last 4 or 5 days.) Duration: Day(s):, Getting Worse Location: Reports: Other (Psychiatric symptoms.) Severity: Moderate Improves with: Reports: None Worsens with: Reports: None Context: Denies: Activity, Exercise, Lifting, Sick Contact, Trauma, Other Associated Symptoms: Reports: Loss of Appetite. Denies: Confusion, Chest Pain, Cough, cough w sputum, Diaphoresis, Fever/Chills, Headaches, Malaise, Nausea/ Vomiting, Rash, Seizure, Shortness of Breath, Syncope, Weakness Treatments DISTRICT SUPERINTENDENT: Reports: Other (see below) (None.) - Related Data Allergies Allergy/AdvReac Type Severity Reaction Status Date / Time No Known Allergies Allergy Verified 08/08/19 16:07 Home Meds: Home Meds Desvenlafaxine Succinate [Pristiq] 04/18/19 [History] Phentermine HCl 37.5 mg PO DAILY 08/08/19 [History] clonazePAM [Klonopin] 2 mg PO DAILY PRN #7 tablet 08/08/19 [Rx] traZODone HCl [Trazodone HCl] 50 mg PO BEDTIME 08/08/19 [History] Past Medical History - Past Health History Medical/Surgical History: Denies Medical/Surgical History Gastrointestinal History: Reports: GERD 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, , Spontaneous Musculoskeletal History: Reports: Fracture Other Musculoskeletal History: Right foot fracture with ORIF Psychiatric History: Reports: Depression - Past Surgical History Musculoskeletal Surgical History: Reports: ORIF Social & Family History - Family History Family Medical History: Noncontributory - Caffeine Use Caffeine Use: Reports: Coffee, Soda, Tea - Living Situation & Occupation Living situation: Reports: Single, with Significant Other (Boyfriend), with Family (2 daughters) 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 Denies: Fever, Chills HEENT: Reports: No Symptoms Respiratory: Reports: No Symptoms Cardiovascular: Reports: No Symptoms Endocrine: Reports: No Symptoms GI/Abdominal: Reports: No Symptoms : Reports: No Symptoms Musculoskeletal: Reports: No Symptoms Skin: Reports: No Symptoms Neurological: Reports: No Symptoms. Denies: Confusion, Dizziness, Headache, Numbness, Paresthesia, Pre-Existing Deficit, Seizure, Syncope, Tingling, Tremors , Trouble Speaking, Difficulty Walking, Weakness Psychiatric: Reports: Depression (Was under really good control with Pristiq and trazodone up until the last for 5 days.), Hallucinations (Auditory hallucinations starting 3 days ago. Is a single voice telling her that she is basically a bad person bad mother and should be doing things around the house. I.e. he voices tend to lay guilt trip upon her. He do not tell her to harm herself or anyone else.), Mood Lability. Denies: Homicidal Ideation, Suicidal Ideation Hematologic/Lymphatic: Reports: Anemia (She is on iron supplement as she had iron deficiency anemia .) Immunologic: Reports: No Symptoms ED EXAM, BEHAVIORAL HEALTH - Physical Exam Exam: See Below Exam Limited By: No Limitations General Appearance: Alert, WD/WN, No Apparent Distress, Other (Vital signs show temperature 36.8. Pulse is 90 and sinus respiratory is 14. BP was slightly elevated 151/79 this) Eye Exam: Bilateral Eye: Normal Inspection, PERRL Throat/Mouth: Normal Inspection, Normal Lips, Normal Oropharynx Head: Atraumatic, Normocephalic Respiratory/Chest: No Respiratory Distress, Lungs Clear, Normal Breath Sounds, No Accessory Muscle Use Cardiovascular: Normal Peripheral Pulses, Regular Rate, Rhythm, No Edema, No Gallop, No Murmur Extremities: Normal Inspection, Normal Range of Motion, Non-Tender, No Pedal Edema Neurological: Alert, Normal Mood/Affect, CN II-XII Intact, Normal Cognition, Normal Gait, No Motor/Sensory Deficits, Oriented x 3 Psychiatric: Alert, Normal Affect, Normal Cognition, Normal Mood, Oriented, Auditory Hallucinations. No: Homicidal Thoughts Skin Exam: Warm, Dry, Intact, Normal color, No rash COURSE, BEHAVIORAL HEALTH COMP - Course Vital Signs: Last Vital Signs Temp 36.8 C 08/08/19 16:02 Pulse 90 08/08/19 16:02 Resp 14 08/08/19 16:02 BP 151/79 H 08/08/19 16:02 Pulse Ox 99 08/08/19 16:02 Orders, Labs, Meds: Laboratory Tests 08/08/19 08/08/19 08/08/19 Range/Units 17:52 17:52 19:20 WBC 6.54 (3.98-10.04) K/mm3 RBC 5.04 (3.98-5.22) M/mm3 Hgb 15.1 (11.2-15.7) gm/dl Hct 44.4 (34.1-44.9) % MCV 88.1 (79.4-94.8) fl MCH 30.0 (25.6-32.2) pg MCHC 34.0 (32.2-35.5) g/dl RDW Std Deviation 42.9 (36.4-46.3) fL Plt Count 224 D (182-369) K/mm3 MPV 10.5 (9.4-12.3) fl Neut % (Auto) 62.3 (34.0-71.1) % Lymph % (Auto) 25.4 (19.3-51.7) % Bailey % (Auto) 8.6 (4.7-12.5) % Eos % (Auto) 2.9 (0.7-5.8) Baso % (Auto) 0.5 (0.1-1.2) % Neut # (Auto) 4.08 (1.56-6.13) K/mm3 Lymph # (Auto) 1.66 (1.18-3.74) K/mm3 Bailey # (Auto) 0.56 H (0.24-0.36) K/mm3 Eos # (Auto) 0.19 (0.04-0.36) K/mm3 Baso # (Auto) 0.03 (0.01-0.08) K/mm3 Sodium 138 (136-145) mEq/L Potassium 3.6 (3.5-5.1) mEq/L Chloride 102 (98-107) mEq/L Carbon Dioxide 26 (21-32) mEq/L Anion Gap 13.6 (5-15) BUN 7 (7-18) mg/dL Creatinine 0.8 (0.55-1.02) mg/dL Est Cr Clr Drug Dosing 99.99 mL/min Estimated GFR (MDRD) > 60 (>60) mL/min BUN/Creatinine Ratio 8.8 L (14-18) Glucose 87 (74-106) mg/dL Calcium 9.0 (8.5-10.1) mg/dL Total Bilirubin 0.7 (0.2-1.0) mg/dL AST 21 (15-37) U/L ALT 28 (14-59) U/L Alkaline Phosphatase 65 (46-116) U/L Total Protein 7.8 (6.4-8.2) g/dl Albumin 3.8 (3.4-5.0) g/dl Globulin 4.0 gm/dL Albumin/Globulin Ratio 1.0 (1-2) TSH 3rd Generation 2.080 (0.358-3.74) uIU/mL Urine Opiates Screen Negative (IHVEOD=526) Ur Buprenorphine Scrn Negative (CUTOFF=10) Ur Oxycodone Screen Negative (RRQ7BM=518) Urine Methadone Screen Negative (JQAXPS=184) Ur Propoxyphene Screen Negative (AHTVGQ=486) Ur Barbiturates Screen Negative (OPRHYB=012) Ur Tricyclics Screen Negative (DEJGTX=293) Ur Phencyclidine Scrn Negative (CUTOFF=25) Ur Amphetamine Screen Presumptive positive H (TZIHUZ=575) U Methamphetamines Scrn Negative (HYNRBO=474) U Benzodiazepines Scrn Negative (QFWJSW=533) U Cocaine Metab Screen Negative (MCLZQJ=907) U Marijuana (THC) Screen Negative (CUTOFF=50) Re-Assessment/Re-Exam: 28-year-old female of -[place] descent presents to the ED with development of auditory hallucinations which are basically a solitary voice telling her that she is a bad mother and could be doing other things such as washing the dishes vacuuming the carpet etc. Basically laying until trip on her. They are not telling her to harm herself or anyone else. Patient has a history of depression and in February of this year was hospitalized because of suicidal ideation. At that time she was started on Pristiq 50 mg daily and trazodone 50 mg at bedtime and has done very well up until the last for 5 days. Over the last for 5 days she has developed inability to sleep. She is exhibiting some hypomanic symptoms with not needing to eat or really need to feel like she needs to sleep etc. She is not exhibiting any manic symptoms at present. Of note she started phentermine 37.5 mg about 8 weeks ago for weight loss program. It is highly suspect that the stimulant is causing her current symptomatology. It is still possible that Pristiq although less likely as it should've caused hypomania or mark symptoms within the first 3 months of use. Plan routine labs will be performed including thyroid function and then will make adjustments to her medications. Re-Assessment/Re-Exam Date: 08/01/19 (18:40: Labs reveal a normal white count at 6.54. Auto differential shows 62% neutrophils no bands reported. Hemoglobin is 15.1 with hematocrit of 44.4. MCV is now 88.1. No sign of iron deficiency anemia. Sodium 138 with potassium of 3.6. Chloride is 102 with a bicarbonate of 26. Anion gap is 13.6 with a BUN of 7. Creatinine is 0.8. GFR is greater than 60. Glucose is 87. Some is 9.0. Liver function is normal. TSH is 2.0.) Departure - Departure Time of Disposition: 19:04 Disposition: Home, Self-Care 01 Condition: Fair Clinical Impression: Auditory hallucinations, Hypomania, Hallucinations, Depressive disorder Insomnia disorder Qualifiers: Insomnia type: unspecified Qualified Code(s): G47.00 - Insomnia, unspecified - Discharge Information *PRESCRIPTION DRUG MONITORING PROGRAM REVIEWED*: Not Applicable *COPY OF PRESCRIPTION DRUG MONITORING REPORT IN PATIENT VARSHA: Not Applicable Prescriptions: clonazePAM [Klonopin] 2 mg PO DAILY PRN #7 tablet PRN Reason: Insomnia Referrals: Seda Owens PA-C [Primary Care Provider] - Forms: ED Department Discharge Additional Instructions: Evaluation the emergent today in regards to development of auditory hallucinations 3 days ago basically telling you that you are a bad and person. Basically laying a guilt trip on you. They are not telling you to harm herself or to hurt anyone else. This is in combination with development of inability to sleep which we call insomnia. It is often the case that we will develop hallucinations from lack of sleep. However on looking at her med list and being on medication phentermine to help with weight loss this medication may well be the culprit in the cause of the insomnia and the auditory hallucinations. You're exhibiting signs and symptoms of hypomania which means mood lability. Test for all completely normal including normal thyroid function. Therefore treatment at this time is suggested to discontinue the phentermine. It should not be used at all in the future as it's likely to cause similar problems. I have prescribed a medication called clonazepam 2 mg strength. He may try one half tablet the first night to see if it will help sleep if not sleeping in 2 hours may take the other half tablet. Suggest doing this for at least 4 nights to ensure that you get caught up on your sleep. May use it on as-needed basis after this. If we are right and the phentermine as the culprit medication and symptoms should markedly improve over the next 7 days. If you have any further symptoms of hallucinations or feeling marked mood lability after 7 days you need to be seen again. Were now continue the trazodone and Pristiq as previously prescribed
== END 2019-08-08 19:30 | disposition home or self-care (01) ==
LOC: JD.ED 15:56
DX: R44.0 Auditory hallucinations (principal); F30.8 Other manic episodes; F32.9 Major depressive disorder, single episode, unspecified; G47.00 Insomnia, unspecified; Z79.899 Other long term (current) drug therapy
CPT/HCPCS: 36415; 80053; 80306; 84443; 85025; 99284

== ENCOUNTER 2019-08-10 14:50 | Emergency (ER) | payer SELFPAY ==
[2019-08-10 15:04] VITALS: BP 121/70; PULSE 95
--- NOTE | 2019-08-10 15:41 | EDM.PDOC ---
<Rekha Kellogg - Last Filed: 08/10/19 15:33> ED HPI GENERAL MEDICAL PROBLEM - General Chief Complaint: Behavioral/Psych Stated Complaint: POSS ALLERGIC REACTION TO MED Time Seen by Provider: 08/10/19 15:15 Source of Information: Reports: Patient, Family History Limitations: Reports: No Limitations - History of Present Illness INITIAL COMMENTS - FREE TEXT/NARRATIVE: Vicki is a 28 year old female who presents to the ED today for evaluation of bilateral leg weakness and numbness. She gave delivery to a baby girl one year ago and has been treated for depression since then. She was seen in the ED on Thursday for trouble sleeping and auditory hallucinations. She was prescribed 1 mg of clonazepam to be taken at bedtime for sleep. She has still been unable to sleep and has taken 4 mg of clonazepam today. Since starting the medication on Thursday she has been experiencing diarrhea and reports having an upset stomach yesterday. She also has leg weakness with numbness running the entire anterior length of her broussard and radiating to her knee bilaterally. Her reports that she has tripped and fallen at least once. Last night she was incontinent to urination while sleeping. Her reports she slept only about 3 hours and it was during this time that she was incontinent. This has never happened to before. She is still experiencing auditory hallucinations. She also reports that she becomes short of breath with exertion. She denies any fever, chills, nausea, weight change. She has not had anything to eat since thursday and has only been drinking water. Patient reports increased polydipsia and polyuria recently.She started taking phentermine last month and has lost 10 pounds. Since starting the medication she has been unable to sleep. She did not take the phentermine yesterday and felt tired but was still unable to sleep. Onset: Sudden Onset Date: 08/08/19 Duration: Day(s):, Constant, Getting Worse Location: Reports: Lower Extremity, Left, Lower Extremity, Right Severity: Mild Improves with: Reports: None Worsens with: Reports: Medication Associated Symptoms: Reports: Other (numbness to tibia and knee bilaterally ) - Related Data Allergies Allergy/AdvReac Type Severity Reaction Status Date / Time No Known Allergies Allergy Verified 08/10/19 15:07 Home Meds: Home Meds Desvenlafaxine Succinate [Pristiq] 50 mg PO DAILY 04/18/19 [History] traZODone HCl [Trazodone HCl] 50 mg PO BEDTIME 08/08/19 [History] LORazepam [Ativan] 1 mg PO TID PRN #12 tab 08/10/19 [Rx] QUEtiapine [SEROquel] 50 mg PO QPM #7 tab 08/10/19 [Rx] Past Medical History - Past Health History Medical/Surgical History: Denies Medical/Surgical History Gastrointestinal History: Reports: GERD 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: Reports: Fibroids, , Spontaneous Musculoskeletal History: Reports: Fracture Other Musculoskeletal History: Right foot fracture with ORIF Psychiatric History: Reports: Depression - Past Surgical History Musculoskeletal Surgical History: Reports: ORIF Social & Family History - Family History Psychiatric: Reports: Depression (mother) - Tobacco Use Smoking Status *Q: Never Smoker - Caffeine Use Caffeine Use: Reports: Coffee - Recreational Drug Use Recreational Drug Use: No - Living Situation & Occupation Living situation: Reports: Single, with Significant Other (Boyfriend), with Family (2 daughters) 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 Denies : Fever, Chills HEENT: Reports: No Symptoms Respiratory: Reports: Shortness of Breath (with exertion ) Cardiovascular: Reports: No Symptoms Endocrine: Reports: Polydypsia, Polyuria GI/Abdominal: Reports: Diarrhea, Decreased Appetite : Reports: No Symptoms Musculoskeletal: Reports: Other (bilateral leg weakness ) Skin: Reports: No Symptoms Neurological: Reports: Numbness (broussard and knee bilaterally ), Difficulty Walking , Weakness Psychiatric: Reports: No Symptoms, Hallucinations (auditory hallucinations ) Hematologic/Lymphatic: Reports: No Symptoms Immunologic: Reports: No Symptoms ED EXAM, GENERAL - Physical Exam Exam: See Below Exam Limited By: No Limitations General Appearance: Alert, WD/WN, No Apparent Distress Head: Atraumatic, Normocephalic Neck: Normal Inspection, Supple, Non-Tender, Full Range of Motion Respiratory/Chest: No Respiratory Distress, Lungs Clear, Normal Breath Sounds, No Accessory Muscle Use, Chest Non-Tender Cardiovascular: Normal Peripheral Pulses, Regular Rate, Rhythm, No Edema, No Gallop, No JVD, No Murmur, No Rub GI/Abdominal: Normal Bowel Sounds, Soft, Non-Tender, No Organomegaly, No Distention, No Abnormal Bruit, No Mass Extremities: Normal Inspection, Normal Range of Motion, Non-Tender, Normal Capillary Refill, No Pedal Edema Neurological: Alert, Oriented, CN II-XII Intact, Normal Cognition, Normal Reflexes, No Motor/Sensory Deficits, Abnormal Gait (shuffles while she walks, very unsteady ) Psychiatric: Depressed Mood, Flat Affect Skin Exam: Warm, Dry, Intact, Normal Color, No Rash Lymphatic: No Adenopathy (\) Course - Vital Signs Last Recorded V/S: Last Vital Signs Temp 98.4 F 08/10/19 15:00 Pulse 95 08/10/19 15:00 Resp 20 08/10/19 15:00 BP 121/70 08/10/19 15:00 Pulse Ox 97 08/10/19 15:00 - Orders/Labs/Meds Labs: Laboratory Tests 08/10/19 08/10/19 08/10/19 Range/Units 15:45 15:45 15:53 WBC 5.95 (3.98-10.04) K/mm3 RBC 5.24 H (3.98-5.22) M/mm3 Hgb 15.9 H (11.2-15.7) gm/dl Hct 46.3 H (34.1-44.9) % MCV 88.4 (79.4-94.8) fl MCH 30.3 (25.6-32.2) pg MCHC 34.3 (32.2-35.5) g/dl RDW Std Deviation 43.7 (36.4-46.3) fL Plt Count 223 (182-369) K/mm3 MPV 10.2 (9.4-12.3) fl Neut % (Auto) 57.6 (34.0-71.1) % Lymph % (Auto) 27.4 (19.3-51.7) % [place] % (Auto) 8.9 (4.7-12.5) % Eos % (Auto) 5.2 (0.7-5.8) Baso % (Auto) 0.7 (0.1-1.2) % Neut # (Auto) 3.43 (1.56-6.13) K/mm3 Lymph # (Auto) 1.63 (1.18-3.74) K/mm3 [place] # (Auto) 0.53 H (0.24-0.36) K/mm3 Eos # (Auto) 0.31 (0.04-0.36) K/mm3 Baso # (Auto) 0.04 (0.01-0.08) K/mm3 Sodium (136-145) mEq/L Potassium (3.5-5.1) mEq/L Chloride (98-107) mEq/L Carbon Dioxide (21-32) mEq/L Anion Gap (5-15) BUN (7-18) mg/dL Creatinine (0.55-1.02) mg/dL Est Cr Clr Drug Dosing mL/min Estimated GFR (MDRD) (>60) mL/min BUN/Creatinine Ratio (14-18) Glucose (74-106) mg/dL Calcium (8.5-10.1) mg/dL Total Bilirubin (0.2-1.0) mg/dL AST (15-37) U/L ALT (14-59) U/L Alkaline Phosphatase (46-116) U/L Total Protein (6.4-8.2) g/dl Albumin (3.4-5.0) g/dl Globulin gm/dL Albumin/Globulin Ratio (1-2) Vitamin B12 (193-986) pg/ml TSH 3rd Generation (0.358-3.74) uIU/mL Urine Color Yellow (Yellow) Urine Appearance Clear (Clear) Urine pH 6.0 (5.0-8.0) Ur Specific [place] 1.020 (1.005-1.030) Urine Protein Negative (Negative) Urine Glucose (UA) Negative (Negative) Urine Ketones Negative (Negative) Urine Occult Blood 2+ H (Negative) Urine Nitrite Negative (Negative) Urine Bilirubin Negative (Negative) Urine Urobilinogen 1.0 (0.2-1.0) Ur Leukocyte Esterase Negative (Negative) Urine RBC 0-5 (0-5) /hpf Urine WBC 0-5 (0-5) /hpf Ur Squamous Epith Cells 5-10 H (0-5) /hpf Urine Bacteria Few (FEW) /hpf Urine Mucus Few (FEW) /hpf Urine Opiates Screen Negative (HYFGYB=386) Ur Buprenorphine Scrn Negative (CUTOFF=10) Ur Oxycodone Screen Negative (GAX2OZ=786) Urine Methadone Screen Negative (YHBPMW=034) Ur Propoxyphene Screen Negative (JKYEGF=477) Ur Barbiturates Screen Negative (UMYPLH=370) Ur Tricyclics Screen Negative (IMLZUO=682) Ur Phencyclidine Scrn Negative (CUTOFF=25) Ur Amphetamine Screen Presumptive positive H (KFCDUJ=849) U Methamphetamines Scrn Negative (PYVWWR=265) U Benzodiazepines Scrn Negative (EOMGPP=860) U Cocaine Metab Screen Negative (XHZWRB=408) U Marijuana (THC) Screen Negative (CUTOFF=50) 08/10/19 08/10/19 Range/Units 15:53 15:53 WBC (3.98-10.04) K/mm3 RBC (3.98-5.22) M/mm3 Hgb (11.2-15.7) gm/dl Hct (34.1-44.9) % MCV (79.4-94.8) fl MCH (25.6-32.2) pg MCHC (32.2-35.5) g/dl RDW Std Deviation (36.4-46.3) fL Plt Count (182-369) K/mm3 MPV (9.4-12.3) fl Neut % (Auto) (34.0-71.1) % Lymph % (Auto) (19.3-51.7) % [place] % (Auto) (4.7-12.5) % Eos % (Auto) (0.7-5.8) Baso % (Auto) (0.1-1.2) % Neut # (Auto) (1.56-6.13) K/mm3 Lymph # (Auto) (1.18-3.74) K/mm3 [place] # (Auto) (0.24-0.36) K/mm3 Eos # (Auto) (0.04-0.36) K/mm3 Baso # (Auto) (0.01-0.08) K/mm3 Sodium 139 (136-145) mEq/L Potassium 3.8 (3.5-5.1) mEq/L Chloride 103 (98-107) mEq/L Carbon Dioxide 26 (21-32) mEq/L Anion Gap 13.8 (5-15) BUN 8 (7-18) mg/dL Creatinine 0.9 (0.55-1.02) mg/dL Est Cr Clr Drug Dosing 88.88 mL/min Estimated GFR (MDRD) > 60 (>60) mL/min BUN/Creatinine Ratio 8.9 L (14-18) Glucose 95 (74-106) mg/dL Calcium 8.9 (8.5-10.1) mg/dL Total Bilirubin 0.4 (0.2-1.0) mg/dL AST 18 (15-37) U/L ALT 20 (14-59) U/L Alkaline Phosphatase 61 (46-116) U/L Total Protein 7.9 (6.4-8.2) g/dl Albumin 3.9 (3.4-5.0) g/dl Globulin 4.0 gm/dL Albumin/Globulin Ratio 1.0 (1-2) Vitamin B12 630 (193-986) pg/ml TSH 3rd Generation 1.879 (0.358-3.74) uIU/mL Urine Color (Yellow) Urine Appearance (Clear) Urine pH (5.0-8.0) Ur Specific [place] (1.005-1.030) Urine Protein (Negative) Urine Glucose (UA) (Negative) Urine Ketones (Negative) Urine Occult Blood (Negative) Urine Nitrite (Negative) Urine Bilirubin (Negative) Urine Urobilinogen (0.2-1.0) Ur Leukocyte Esterase (Negative) Urine RBC (0-5) /hpf Urine WBC (0-5) /hpf Ur Squamous Epith Cells (0-5) /hpf Urine Bacteria (FEW) /hpf Urine Mucus (FEW) /hpf Urine Opiates Screen (YHMGPD=243) Ur Buprenorphine Scrn (CUTOFF=10) Ur Oxycodone Screen (UFK7CY=898) Urine Methadone Screen (COGJAG=325) Ur Propoxyphene Screen (PBJMOY=244) Ur Barbiturates Screen (ERRNZI=481) Ur Tricyclics Screen (FROLGF=387) Ur Phencyclidine Scrn (CUTOFF=25) Ur Amphetamine Screen (BQMBJE=704) U Methamphetamines Scrn (FYNYPA=458) U Benzodiazepines Scrn (QODUTV=988) U Cocaine Metab Screen (BHTPMG=174) U Marijuana (THC) Screen (CUTOFF=50) Departure - Departure Disposition: Home, Self-Care 01 Clinical Impression: Anxiety Accidental overdose Qualifiers: Encounter type: initial encounter Qualified Code(s): T50.901A - Poisoning by unspecified drugs, medicaments and biological substances, accidental ( unintentional), initial encounter - Discharge Information Prescriptions: LORazepam [Ativan] 1 mg PO TID PRN #12 tab PRN Reason: Anxiety QUEtiapine [SEROquel] 50 mg PO QPM #7 tab Instructions: Living With Anxiety Referrals: Seda Owens PA-C [Primary Care Provider] - Forms: ED Department Discharge, ED Return to Work/School Form Additional Instructions: You were evaluated in the ER today regarding your anxiety, and taking too much medication. Your laboratory evaluation was essentially within normal limits, all of the symptoms are describing are felt likely to be due to your phentermine use. Recommend that you stop taking phentermine, and give it about a weeks time, and see if your symptoms do not resolve. You were prescribed Seroquel, 50 mg, one tablet one hour before bedtime, and Ativan tablets for anxiety throughout the day. These were electronically prescribed to the [facility] located [facility] [employer] [facility]. Recommend that you take the remaining clonazepam that you were prescribed, and take it back to the pharmacy for destruction. If your symptoms do not resolve about a week after you stop taking the phentermine, recommend you follow up with your primary care physician for re- evaluation. Please return to the ED if your symptoms should change or worsen. <Cyndy Mc - Last Filed: 08/10/19 17:25> ED HPI GENERAL MEDICAL PROBLEM - History of Present Illness INITIAL COMMENTS - FREE TEXT/NARRATIVE: I have read and reviewed the student's HPI and examined the patient and agree with FARIDEH Gruber-student. Course - Re-Assessments/Exams Free Text/Narrative Re-Assessment/Exam: 08/10/19 16:48 Patient presents to the ED for evaluation of few different complaints. She is still not feeling much better due to the hallucinations and voices, I did talk this case and with Dr. Castro, as he was working with me today. It is fairly obvious that the phentermine is causing some of these issues. She did stop taking this yesterday, and I will urge her to keep not taking this. Her labs are essentially within normal limits, only lab pending now is vitamin B12. I suspect that most of her symptoms are likely due to side effects of the phentermine, and then she took too much clonazepam obviously. Dr. Castro suggests starting her on 50 mg Seroquel one hour before bedtime, to see if this doesn't help, and he suggested switching to Ativan versus a clonazepam. I will make these changes to the patient's regimen, and see how she feels about making these changes. Departure - Departure Time of Disposition: 16:54 Condition: Fair - Discharge Information *PRESCRIPTION DRUG MONITORING PROGRAM REVIEWED*: No *COPY OF PRESCRIPTION DRUG MONITORING REPORT IN PATIENT VARSHA: No
== END 2019-08-10 17:30 | disposition home or self-care (01) ==
LOC: JD.ED 14:50
DX: T42.4X1A Poisoning by benzodiazepines, accidental (unintentional), initial encounter (principal); F41.9 Anxiety disorder, unspecified; F32.9 Major depressive disorder, single episode, unspecified; Z79.899 Other long term (current) drug therapy
CPT/HCPCS: 36415; 80053; 80306; 81001; 82607; 84443; 85025; 99283; 99284

== ENCOUNTER 2020-11-11 11:24 | Day surgery (SDC) | payer SELFPAY ==
--- NOTE | 2020-11-11 13:29 | EDM.PDOC ---
ED HPI GENERAL MEDICAL PROBLEM - General Chief Complaint: Abdominal Pain Stated Complaint: ABDOMINAL PAIN Time Seen by Provider: 11/11/20 13:21 Source of Information: Reports: Patient History Limitations: Reports: No Limitations - History of Present Illness INITIAL COMMENTS - FREE TEXT/NARRATIVE: 29-year-old female of -[place] descent presents to the ED with diffuse abdominal pain. She states she felt well when she went to bed last night. She awoke around 0400 hrs. this morning with a need to void and appreciated diffuse lower abdominal pain when she was walking to the bathroom. No improvement of the pain occurred with voiding. She had a mild nausea and minimal emesis this morning. This was bilious. She states she was not able to sleep the rest remainder of the night due to increasing abdominal pain. At present she cannot localize the pain to any one area but states that it seems to be all around the upper outer abdomen. She appreciates increased pain with laughing coughing and riding in a motor vehicle on the way to the hospital suggesting peritonitis. Patient states her menstrual cycle started yesterday and initially she thought she was experiencing some cramping or dysmenorrhea but she states this pain is more constant and worsened by above movement. She states she cannot walk fully erect. She has had no previous abdominal surgeries. Patient has complete loss of appetite. She had a little bit of water earlier this morning but no solid food. Onset: Today, Sudden Onset Date: 11/11/20 Onset Time: 04:00 (Awoke from sleep with sudden onset of diffuse lower abdominal pain) Duration: Hour(s):, Getting Worse Location: Reports: Abdomen (Fuhs abdominal pain not able to localize to any one area. Pain is worsened by coughing laughing and riding in a motor vehicle.) Quality: Reports: Other (Constant deep aching pain.) Severity: Moderate Improves with: Reports: Rest Worsens with: Reports: Other (Is worsened by laughing coughing and movement such as walking. He was also aggravated by riding in motor vehicle on the way to the hospital.) Context: Reports: Other (Spontaneous occurrence over the last several hours of diffuse abdominal pain) Associated Symptoms: Reports: Loss of Appetite, Malaise, Nausea/Vomiting (1 small emesis early this morning with onset of pain.), Weakness. Denies: Confusion, Chest Pain, Cough, cough w sputum, Diaphoresis, Fever/Chills, Headaches, Rash, Seizure, Syncope Treatments LETTERER: Reports: Other (see below) Other Treatments LETTERER: antacid Abdomen Pain Score (Numeric/FACES): 7 - Related Data Allergies Allergy/AdvReac Type Severity Reaction Status Date / Time No Known Allergies Allergy Verified 08/10/19 15:07 Home Meds: Home Meds Desvenlafaxine Succinate [Pristiq] 50 mg PO DAILY 04/18/19 [History] traZODone HCl [Trazodone HCl] 50 mg PO BEDTIME 08/08/19 [History] LORazepam [Ativan] 1 mg PO TID PRN #12 tab 08/10/19 [Rx] Docusate Sodium [Colace] 100 mg PO Q12H 15 Days #30 capsule 11/11/20 [Rx] oxyCODONE HCl/Acetaminophen [Percocet 5-325 mg Tablet] 1 each PO Q6H PRN 3 Days #12 tablet 11/11/20 [Rx] Past Medical History - Past Health History Medical/Surgical History: Denies Medical/Surgical History Gastrointestinal History: Reports: GERD 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: Fibroids, , Spontaneous Musculoskeletal History: Reports: Fracture Other Musculoskeletal History: Right foot fracture with ORIF Psychiatric History: Reports: Depression - Past Surgical History Musculoskeletal Surgical History: Reports: ORIF Social & Family History - Family History Family Medical History: No Pertinent Family History Psychiatric: Reports: Depression - Tobacco Use Tobacco Use Status *Q: Former Tobacco User Used Tobacco, but Quit: Yes Month/Year Tobacco Last Used: 1 month - Caffeine Use Caffeine Use: Reports: Soda - Recreational Drug Use Recreational Drug Use: No - Living Situation & Occupation Living situation: Reports: Single, with Significant Other (Boyfriend), with Family (2 daughters) 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 Denies: Fever, Chills HEENT: Reports: No Symptoms Respiratory: Reports: Shortness of Breath Cardiovascular: Reports: No Symptoms Endocrine: Reports: No Symptoms GI/Abdominal: Reports: Abdominal Pain (See history of present illness.), Anorexia, Nausea, Vomiting (1 very small bilious emesis early this morning. No hematemesis). Denies: Constipation, Diarrhea : Reports: Other (Currently on menses. Started yesterday on time and as expected.). Denies: Dysuria, Frequency, Urgency Musculoskeletal: Reports: No Symptoms Skin: Reports: No Symptoms Neurological: Reports: No Symptoms Psychiatric: Reports: No Symptoms Hematologic/Lymphatic: Reports: No Symptoms Immunologic: Reports: No Symptoms ED EXAM, GI/ABD - Physical Exam Exam: See Below Exam Limited By: No Limitations General Appearance: Alert, WD/WN, No Apparent Distress, Other (Patient does feel mildly warm to palpation. Nurses registered a temperature of 37.5. Heart rate 95 and sinus respiratory is 20 with O2 sats of 98% room air BP 11[birth year]05[birth year]1971.) Eyes: Bilateral: Normal Appearance (No scleral icterus or blepharal pallor.) Throat/Mouth: Normal Lips, Normal Teeth, Normal Oropharynx, Other (Tongue is mildly dry) Head: Atraumatic, Normocephalic Neck: Normal Inspection, Supple, Non-Tender, Full Range of Motion. No: Lymphadenopathy (L), Lymphadenopathy (R) Respiratory/Chest: Lungs Clear (Mild tachypnea.), Normal Breath Sounds, No Accessory Muscle Use, Respiratory Distress Cardiovascular: Normal Peripheral Pulses, Regular Rate, Rhythm, No Edema, No Gallop, No Murmur, No Rub GI/Abdominal Exam: No Organomegaly, Guarding, Rebound ( Suspect acute appendicitis.), Tender (Generalized tenderness to palpation indicating acute peritonitis. There is slight guarding in the right lower quadrant versus the left lower quadrant. She has a positive Rovsing sign and bilateral rebound tenderness on deep palpation and release.), Abnormal Bowel Sounds (Bowel sounds are very few and far between), Other (Mildly obese. Negative Kim sign .No surgical scars). No: Rigid (Right lower quadrant of the abdomen) Back Exam: Normal Inspection, Full Range of Motion. No: CVA Tenderness (L), CVA Tenderness (R) Extremities: Normal Inspection, Normal Range of Motion, Non-Tender, No Pedal Edema Neurological: Alert, Oriented, CN II-XII Intact, Normal Cognition Psychiatric: Normal Affect, Normal Mood Skin Exam: Warm, Dry, Intact, Normal Color, No Rash Course - Vital Signs Last Recorded V/S: Last Vital Signs Temp 36.6 C 11/11/20 19:20 Pulse 85 11/11/20 19:20 Resp 14 11/11/20 19:20 BP 113/58 L 11/11/20 19:20 Pulse Ox 96 11/11/20 19:20 - Orders/Labs/Meds Orders: Active Orders 24 hr Category Date Time Status Patient Status [ADT] Routine ADT 11/11/20 15:17 Active Abdomen Pelvis w Cont [CT] Stat Exams 11/11/20 13:33 Taken Schedule Procedure [COMM] Stat Oth 11/11/20 15:18 Ordered Labs: Laboratory Tests 11/11/20 11/11/20 11/11/20 Range/Units 12:15 12:15 12:15 WBC 17.66 H (3.98-10.04) K/mm3 RBC 4.88 (3.98-5.22) M/mm3 Hgb 14.7 (11.2-15.7) gm/dl Hct 43.3 (34.1-44.9) % MCV 88.7 (79.4-94.8) fl MCH 30.1 (25.6-32.2) pg MCHC 33.9 (32.2-35.5) g/dl RDW Std Deviation 42.7 (36.4-46.3) fL Plt Count 255 (182-369) K/mm3 MPV 10.5 (9.4-12.3) fl Neut % (Auto) 88.6 H (34.0-71.1) % Lymph % (Auto) 5.3 L (19.3-51.7) % [place] % (Auto) 5.3 (4.7-12.5) % Eos % (Auto) 0.3 L (0.7-5.8) Baso % (Auto) 0.2 (0.1-1.2) % Neut # (Auto) 15.64 H (1.56-6.13) K/mm3 Lymph # (Auto) 0.94 L (1.18-3.74) K/mm3 [place] # (Auto) 0.93 H (0.24-0.36) K/mm3 Eos # (Auto) 0.06 (0.04-0.36) K/mm3 Baso # (Auto) 0.03 (0.01-0.08) K/mm3 Manual Slide Review Abnormal smear Sodium (136-145) mEq/L Potassium (3.5-5.1) mEq/L Chloride (98-107) mEq/L Carbon Dioxide (21-32) mEq/L Anion Gap (5-15) BUN (7-18) mg/dL Creatinine (0.55-1.02) mg/dL Est Cr Clr Drug Dosing mL/min Estimated GFR (MDRD) (>60) mL/min BUN/Creatinine Ratio (14-18) Glucose (74-106) mg/dL Calcium (8.5-10.1) mg/dL Total Bilirubin (0.2-1.0) mg/dL AST (15-37) U/L ALT (14-59) U/L Alkaline Phosphatase (46-116) U/L C-Reactive Protein (<1.0) mg/dL Total Protein (6.4-8.2) g/dl Albumin (3.4-5.0) g/dl Globulin gm/dL Albumin/Globulin Ratio (1-2) Lipase (73-393) U/L Urine Color Yellow (Yellow) Urine Appearance Slt cloudy H (Clear) Urine pH 5.5 (5.0-8.0) Ur Specific [place] > or = 1.030 (1.005-1.030) Urine Protein 1+ H (Negative) Urine Glucose (UA) Negative (Negative) Urine Ketones 1+ H (Negative) Urine Occult Blood 3+ H (Negative) Urine Nitrite Negative (Negative) Urine Bilirubin 1+ H (Negative) Urine Urobilinogen 0.2 (0.2-1.0) Ur Leukocyte Esterase Negative (Negative) Urine RBC 50-75 H (0-5) /hpf Urine WBC 5-10 H (0-5) /hpf Ur Epithelial Cells 5-10 H (0-5) /hpf Urine Bacteria Few (FEW) /hpf Urine Mucus Few (FEW) /hpf Urine HCG, Qual Negative (NEGATIVE) SARS-CoV-2 RNA (WILLIAM) (NEGATIVE) 11/11/20 11/11/20 Range/Units 12:15 14:25 WBC (3.98-10.04) K/mm3 RBC (3.98-5.22) M/mm3 Hgb (11.2-15.7) gm/dl Hct (34.1-44.9) % MCV (79.4-94.8) fl MCH (25.6-32.2) pg MCHC (32.2-35.5) g/dl RDW Std Deviation (36.4-46.3) fL Plt Count (182-369) K/mm3 MPV (9.4-12.3) fl Neut % (Auto) (34.0-71.1) % Lymph % (Auto) (19.3-51.7) % [place] % (Auto) (4.7-12.5) % Eos % (Auto) (0.7-5.8) Baso % (Auto) (0.1-1.2) % Neut # (Auto) (1.56-6.13) K/mm3 Lymph # (Auto) (1.18-3.74) K/mm3 [place] # (Auto) (0.24-0.36) K/mm3 Eos # (Auto) (0.04-0.36) K/mm3 Baso # (Auto) (0.01-0.08) K/mm3 Manual Slide Review Sodium 139 (136-145) mEq/L Potassium 3.3 L (3.5-5.1) mEq/L Chloride 102 (98-107) mEq/L Carbon Dioxide 25 (21-32) mEq/L Anion Gap 15.3 H (5-15) BUN 8 (7-18) mg/dL Creatinine 0.9 (0.55-1.02) mg/dL Est Cr Clr Drug Dosing 88.07 mL/min Estimated GFR (MDRD) > 60 (>60) mL/min BUN/Creatinine Ratio 8.9 L (14-18) Glucose 106 (74-106) mg/dL Calcium 8.5 (8.5-10.1) mg/dL Total Bilirubin 0.6 (0.2-1.0) mg/dL AST 25 (15-37) U/L ALT 40 (14-59) U/L Alkaline Phosphatase 65 (46-116) U/L C-Reactive Protein 0.4 (<1.0) mg/dL Total Protein 8.1 (6.4-8.2) g/dl Albumin 4.1 (3.4-5.0) g/dl Globulin 4.0 gm/dL Albumin/Globulin Ratio 1.0 (1-2) Lipase 118 (73-393) U/L Urine Color (Yellow) Urine Appearance (Clear) Urine pH (5.0-8.0) Ur Specific [place] (1.005-1.030) Urine Protein (Negative) Urine Glucose (UA) (Negative) Urine Ketones (Negative) Urine Occult Blood (Negative) Urine Nitrite (Negative) Urine Bilirubin (Negative) Urine Urobilinogen (0.2-1.0) Ur Leukocyte Esterase (Negative) Urine RBC (0-5) /hpf Urine WBC (0-5) /hpf Ur Epithelial Cells (0-5) /hpf Urine Bacteria (FEW) /hpf Urine Mucus (FEW) /hpf Urine HCG, Qual (NEGATIVE) SARS-CoV-2 RNA (WILLIAM) Negative (NEGATIVE) Meds: Medications Discontinued Medications Generic Name Dose Route Start Last Admin Trade Name Freq PRN Reason Stop Dose Admin Bupivacaine HCl/Epinephrine Bitart Confirm 11/11/20 15:32 11/11/20 16:23 Marcaine 0.5%/Epinephrine 1:200,000 Administered 11/11/20 15:33 40 ml Dose Administration 50 ml .ROUTE .STK-MED ONE Dexamethasone Confirm 11/11/20 15:27 Dexamethasone Administered 11/11/20 15:28 Dose 20 mg .ROUTE .STK-MED ONE Fentanyl Confirm 11/11/20 15:26 Sublimaze Administered 11/11/20 15:27 Dose 250 mcg .ROUTE .STK-MED ONE Fentanyl 50 mcg 11/11/20 16:10 11/11/20 17:43 Sublimaze IVPUSH 50 mcg Q5M PRN Administration Pain Hydromorphone HCl 0.5 mg 11/11/20 13:32 11/11/20 13:44 Dilaudid IVPUSH 11/11/20 13:33 0.5 mg ONETIME ONE Administration Hydromorphone HCl 0.5 mg 11/11/20 16:10 11/11/20 18:16 Dilaudid IVPUSH 0.5 mg Q10M PRN Administration Pain (severe 7-10) Hydromorphone HCl Confirm 11/11/20 16:23 Dilaudid Administered 11/11/20 16:24 Dose 0.5 mg .ROUTE .STK-MED ONE Dextrose/Sodium Chloride 1,000 mls @ 999 mls/hr 11/11/20 13:45 11/11/20 13:46 Dextrose 5%-Normal Saline IV 999 mls/hr ASDIRECTED ARLENE Administration Cefoxitin Sodium 2 gm/ Premix 50 mls @ 100 mls/hr 11/11/20 14:25 11/11/20 14:38 IV 11/11/20 14:54 100 mls/hr ONETIME ONE Administration Lidocaine HCl Confirm 11/11/20 15:26 Xylocaine-Mpf 1% Administered 11/11/20 15:27 Dose 4 mls @ as directed .ROUTE .STK-MED ONE Lactated Ringer's Confirm 11/11/20 15:47 Ringers, Lactated Administered 11/11/20 15:48 Dose 1,000 mls @ as directed .ROUTE .STK-MED ONE Iopamidol 25 ml 11/11/20 13:39 11/11/20 13:53 Isovue-300 (61%) IVPUSH 11/11/20 13:40 25 ml ONETIME ONE Administration Iopamidol 100 ml 11/11/20 13:39 11/11/20 13:53 Isovue-300 (61%) IVPUSH 11/11/20 13:40 100 ml ONETIME ONE Administration Ketorolac Tromethamine Confirm 11/11/20 16:18 Toradol Administered 11/11/20 16:19 Dose 30 mg .ROUTE .STK-MED ONE Metoclopramide HCl 7.5 mg 11/11/20 13:32 11/11/20 13:41 Reglan IVPUSH 11/11/20 13:33 7.5 mg ONETIME ONE Administration Midazolam HCl Confirm 11/11/20 15:26 Versed 1 Mg/Ml Administered 11/11/20 15:27 Dose 2 mg .ROUTE .STK-MED ONE Ondansetron HCl Confirm 11/11/20 15:26 Zofran Administered 11/11/20 15:27 Dose 4 mg .ROUTE .STK-MED ONE Ondansetron HCl 4 mg 11/11/20 16:10 Zofran IVPUSH ONETIME PRN Nausea/Vomiting Oxycodone/Acetaminophen 1 tab 11/11/20 18:11 Percocet 325-5 Mg PO Q6H PRN Pain Propofol Confirm 11/11/20 15:26 Diprivan 20 Ml Administered 11/11/20 15:27 Dose 200 mg .ROUTE .STK-MED ONE Rocuronium [place] Confirm 11/11/20 15:26 Zemuron Administered 11/11/20 15:27 Dose 50 mg .ROUTE .STK-MED ONE Sodium Chloride 10 ml 11/11/20 13:54 11/11/20 13:55 Saline Flush FLUSH 10 ml ONETIME PRN Administration Keep Vein Open - Radiology Interpretation Free Text/Narrative:: 29-year-old female presents to the ED with diffuse abdominal pain that seem to originate about 0400 hrs. this morning that awoke her from sleep. She identified diffuse abdominal pain with walking to the bathroom to void. Since that time the pain has increased in intensity and she is not able to localize it. It is made worse by laughing coughing and walking. It was also made worse by traveling in a motor vehicle to come to the hospital. Loss of appetite. Low-grade fever on examination exam reveals diffuse peritonitis primarily localized to the right lower quadrant with mild guarding. Bilateral rebound tenderness. Suspect appendicitis. Plan IV D5 normal saline at open. Given Reglan 7.5 mg IV for nausea relief and Dilaudid 0.5 mg IV for pain relief. She will have CT of the abdomen pelvis with per renal protocol. Triage nurse is ordered labs. - Re-Assessments/Exams Free Text/Narrative Re-Assessment/Exam: 11/11/20 13:51 Chemistry is back showing a sodium of 139 potassium slightly low at 3.3. Chloride of 102 with a bicarb of 25. Anion gap is 15.3.. BUN is 8 with a creatinine of 0.9 and a GFR greater than 60. Glucose is 106 with a calcium of 8.5 liver function is normal C-reactive protein is normal at 0.4. Lipase is normal at 118. Urinalysis is slightly cloudy reveals 1+ proteinuria 1+ ketones and 3+ occult blood. Note the patient is currently menstruating. The micro shows 50-75 RBCs per high-power field and 5-10 WBCs per high-power field 11/11/20 14:39 White count is elevated at 17.66 with a left shift of 88.6% neutrophils. Hemoglobin is 14.7 with hematocrit of 43.3. Platelet count 255,000. CT scan of the abdomen and pelvis has been completed with IV contrast only. Findings reveal minimal hepatic steatosis. Gallbladder and bile ducts are normal with no calcified gallstones or ductal dilatation. Pancreas is normal with no ductal dilatation spleen is normal with no splenomegaly. The adrenal glands are normal with no masses. Kidneys and ureters appear normal with no hydronephrosis. Stomach and bowel revealed few scattered colonic diverticula. Moderate amount of stool within the colon appreciated. Examination of the appendix reveals it to be inflamed and distended with enh ancing wall. It measures up to 9 mm in thickness. There is minimal to moderate periappendiceal fat stranding. No focal abscess appreciated. Intraperitoneal space reveals a small amount of fluid within the deep pelvis. Vasculature is unremarkable with no abdominal aortic aneurysm lymph nodes are unremarkable. Urinary bladder appears unremarkable reproductive organs appear unremarkable. Bones and joints appear unremarkable. Diagnosis acute appendicitis with moderate periappendiceal stranding. Plan :patient will be referred to Dr. Rios on-call surgeon with plan to see the patient in the ED for potential appendectomy. Patient advised of the findings and the need for surgery. She felt abdominal pain was under control after treatment with Dilaudid 0.5 mg IV. 11/11/20 15:00: Dr Rios was in the hospital when I called him making rounds. He therefore came to the emergency room to see the patient at this time and plan is to take her to surgery. Covid screen is pending. 11/11/20: 15:15: Covid screen has returned as negative. Departure - Departure Time of Disposition: 15:45 Disposition: DC/Tfer to [facility] Condition: Fair Clinical Impression: Acute abdominal pain syndrome, Acute appendicitis - Discharge Information *PRESCRIPTION DRUG MONITORING PROGRAM REVIEWED*: Not Applicable *COPY OF PRESCRIPTION DRUG MONITORING REPORT IN PATIENT VARSHA: Not Applicable Sepsis Event Note (ED) - Evaluation Sepsis Screening Result: No Definite Risk - Focused Exam Vital Signs: Vital Signs Temp Pulse Resp BP Pulse Ox Pulse Ox 11/11/20 19:20 36.6 C 85 14 113/58 L 96 11/11/20 18:25 36.3 C 78 15 110/66 95 11/11/20 18:16 94 L 11/11/20 18:10 75 18 124/75 94 L 11/11/20 18:00 96 11/11/20 17:55 36.8 C 87 16 123/80 96 11/11/20 17:40 80 14 121/70 100 11/11/20 17:25 36.6 C 81 15 113/67 97 11/11/20 17:09 36.8 C 86 11 L 129/75 100 100 11/11/20 15:45 37.0 C 104 H 20 113/94 H 99 - My Orders Last 24 Hours: My Active Orders 11/11/20 13:33 Abdomen Pelvis w Cont [CT] Stat 11/11/20 15:17 Patient Status [ADT] Routine 11/11/20 15:18 Schedule Procedure [COMM] Stat - Assessment/Plan Last 24 Hours: My Active Orders 11/11/20 13:33 Abdomen Pelvis w Cont [CT] Stat 11/11/20 15:17 Patient Status [ADT] Routine 11/11/20 15:18 Schedule Procedure [COMM] Stat
[2020-11-11] MEDS ORDERED: HYDROmorphone 0.5 MG/0.5 ML Syringe IVPUSH ONE (13:32)
[2020-11-11] MEDS ORDERED: Metoclopramide 10 MG/2 ML SDV IVPUSH ONE (13:32)
[2020-11-11] MEDS ORDERED: Iopamidol 612 MG/ML 50 ML SDV IVPUSH ONE (13:39)
[2020-11-11] MEDS ORDERED: Iopamidol 612 MG/ML 100 ML Bottle IVPUSH ONE (13:39)
[2020-11-11] MEDS ORDERED: Dextrose 5%-0.9% NaCl 1,000 ML IV SCH (13:45)
[2020-11-11] MEDS ORDERED: Sodium Chloride 0.9% 10 ML Syringe FLUSH PRN (13:54)
[2020-11-11] MEDS ORDERED: cefOXitin 2 GM in Premix Bag 1 BAG IV ONE (14:25)
[2020-11-11] MEDS ORDERED: Lidocaine 1% 4 ML ONE (15:26)
[2020-11-11] MEDS ORDERED: Rocuronium 50 MG/5 ML Vial ONE (15:26)
[2020-11-11] MEDS ORDERED: Propofol 200 MG/20 ML SDV ONE (15:26)
[2020-11-11] MEDS ORDERED: fentaNYL 250 MCG/5 ML SDV ONE (15:26)
[2020-11-11] MEDS ORDERED: Ondansetron 4 MG/2 ML SDV ONE (15:26)
[2020-11-11] MEDS ORDERED: Midazolam 1 MG/ML 2 ML SDV ONE (15:26)
[2020-11-11] MEDS ORDERED: Dexamethasone 4 MG/ML 5 ML MDV ONE (15:27)
[2020-11-11] MEDS ORDERED: Bupivacaine 0.5%/EPINEPHrine 1:200,000 50 ML MDV ONE (15:32)
--- NOTE | 2020-11-11 15:40 | PCM.PREANE ---
Preanesthetic Assessment - Procedure Proposed Procedure: lap appy - Anesthesia/Transfusion/Family Hx Anesthesia History: Prior Anesthesia Without Reaction Family History of Anesthesia Reaction: No Transfusion History: No Prior Transfusion(s) Intubation History: Unknown - Review of Systems General: No Symptoms Pulmonary: No Symptoms Cardiovascular: No Symptoms Gastrointestinal: Abdominal Pain (started at 4 am), Nausea (denies now), Vomiting (this am) Neurological: No Symptoms Other: Reports: Anxiety - Physical Assessment NPO Status Date: 11/11/20 NPO Status Time: 06:00 Vital Signs: Last Vital Signs Temp 99.5 F 11/11/20 11:52 Pulse 95 11/11/20 11:52 Resp 20 11/11/20 11:52 BP 125/72 11/11/20 11:52 Pulse Ox 98 11/11/20 11:52 Height: 5 ft 7 in Weight: 92.164 kg ASA Class: 2E Mental Status: Alert & Oriented x3 Airway Class: Mallampati = 2 Dentition: Reports: Normal Dentition Thyro-Mental Finger Breadths: 3 Mouth Opening Finger Breadths: 3 ROM/Head Extension: Full Lungs: Clear to Auscultation, Normal Respiratory Effort Cardiovascular: Regular Rate, Regular Rhythm - Lab Values: Laboratory Last Values WBC 17.66 K/mm3 (3.98-10.04) H 11/11/20 12:15 RBC 4.88 M/mm3 (3.98-5.22) 11/11/20 12:15 Hgb 14.7 gm/dl (11.2-15.7) 11/11/20 12:15 Hct 43.3 % (34.1-44.9) 11/11/20 12:15 MCV 88.7 fl (79.4-94.8) 11/11/20 12:15 MCH 30.1 pg (25.6-32.2) 11/11/20 12:15 MCHC 33.9 g/dl (32.2-35.5) 11/11/20 12:15 RDW Std Deviation 42.7 fL (36.4-46.3) 11/11/20 12:15 Plt Count 255 K/mm3 (182-369) 11/11/20 12:15 MPV 10.5 fl (9.4-12.3) 11/11/20 12:15 Neut % (Auto) 88.6 % (34.0-71.1) H 11/11/20 12:15 Lymph % (Auto) 5.3 % (19.3-51.7) L 11/11/20 12:15 [place] % (Auto) 5.3 % (4.7-12.5) 11/11/20 12:15 Eos % (Auto) 0.3 (0.7-5.8) L 11/11/20 12:15 Baso % (Auto) 0.2 % (0.1-1.2) 11/11/20 12:15 Neut # (Auto) 15.64 K/mm3 (1.56-6.13) H 11/11/20 12:15 Lymph # (Auto) 0.94 K/mm3 (1.18-3.74) L 11/11/20 12:15 [place] # (Auto) 0.93 K/mm3 (0.24-0.36) H 11/11/20 12:15 Eos # (Auto) 0.06 K/mm3 (0.04-0.36) 11/11/20 12:15 Baso # (Auto) 0.03 K/mm3 (0.01-0.08) 11/11/20 12:15 Manual Slide Review Abnormal smear 11/11/20 12:15 Sodium 139 mEq/L (136-145) 11/11/20 12:15 Potassium 3.3 mEq/L (3.5-5.1) L 11/11/20 12:15 Chloride 102 mEq/L (98-107) 11/11/20 12:15 Carbon Dioxide 25 mEq/L (21-32) 11/11/20 12:15 Anion Gap 15.3 (5-15) H 11/11/20 12:15 BUN 8 mg/dL (7-18) 11/11/20 12:15 Creatinine 0.9 mg/dL (0.55-1.02) 11/11/20 12:15 Est Cr Clr Drug Dosing 88.07 mL/min 11/11/20 12:15 Estimated GFR (MDRD) > 60 mL/min (>60) 11/11/20 12:15 BUN/Creatinine Ratio 8.9 (14-18) L 11/11/20 12:15 Glucose 106 mg/dL (74-106) 11/11/20 12:15 Calcium 8.5 mg/dL (8.5-10.1) 11/11/20 12:15 Total Bilirubin 0.6 mg/dL (0.2-1.0) 11/11/20 12:15 AST 25 U/L (15-37) 11/11/20 12:15 ALT 40 U/L (14-59) 11/11/20 12:15 Alkaline Phosphatase 65 U/L (46-116) 11/11/20 12:15 C-Reactive Protein 0.4 mg/dL (<1.0) 11/11/20 12:15 Total Protein 8.1 g/dl (6.4-8.2) 11/11/20 12:15 Albumin 4.1 g/dl (3.4-5.0) 11/11/20 12:15 Globulin 4.0 gm/dL 11/11/20 12:15 Albumin/Globulin Ratio 1.0 (1-2) 11/11/20 12:15 Lipase 118 U/L (73-393) 11/11/20 12:15 Urine Color Yellow (Yellow) 11/11/20 12:15 Urine Appearance Slt cloudy (Clear) H 11/11/20 12:15 Urine pH 5.5 (5.0-8.0) 11/11/20 12:15 Ur Specific [place] > or = 1.030 (1.005-1.030) 11/11/20 12:15 Urine Protein 1+ (Negative) H 11/11/20 12:15 Urine Glucose (UA) Negative (Negative) 11/11/20 12:15 Urine Ketones 1+ (Negative) H 11/11/20 12:15 Urine Occult Blood 3+ (Negative) H 11/11/20 12:15 Urine Nitrite Negative (Negative) 11/11/20 12:15 Urine Bilirubin 1+ (Negative) H 11/11/20 12:15 Urine Urobilinogen 0.2 (0.2-1.0) 11/11/20 12:15 Ur Leukocyte Esterase Negative (Negative) 11/11/20 12:15 Urine RBC 50-75 /hpf (0-5) H 11/11/20 12:15 Urine WBC 5-10 /hpf (0-5) H 11/11/20 12:15 Ur Epithelial Cells 5-10 /hpf (0-5) H 11/11/20 12:15 Urine Bacteria Few /hpf (FEW) 11/11/20 12:15 Urine Mucus Few /hpf (FEW) 11/11/20 12:15 Urine HCG, Qual Negative (NEGATIVE) 11/11/20 12:15 SARS-CoV-2 RNA (WILLIAM) Negative (NEGATIVE) 11/11/20 14:25 - Allergies Allergies/Adverse Reactions: Allergies Allergy/AdvReac Type Severity Reaction Status Date / Time No Known Allergies Allergy Verified 08/10/19 15:07 - Blood Blood Available: No - Acknowledgements Anesthesia Type Planned: General Anesthesia Pt an Appropriate Candidate for the Planned Anesthesia: Yes Alternatives and Risks of Anesthesia Discussed w Pt/Guardian: Yes Pt/Guardian Understands and Agrees with Anesthesia Plan: Yes PreAnesthesia Questionnaire - Past Health History Medical/Surgical History: Denies Medical/Surgical History Cardiovascular History: Reports: None Respiratory History: Reports: None Gastrointestinal History: Reports: GERD (only with preg) 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: Reports: Fibroids, , Spontaneous Musculoskeletal History: Reports: Fracture Other Musculoskeletal History: Right foot fracture with ORIF Psychiatric History: Reports: Depression (denies) Endocrine/Metabolic History: Reports: Obesity/BMI 30+ Oncologic (Cancer) History: Reports: None - Past Surgical History Musculoskeletal Surgical History: Reports: ORIF - SUBSTANCE USE Tobacco Use Status *Q: Former Tobacco User (quit 4-5 months ago) Tobacco Use Within Last Twelve Months: Cigarettes Second Hand Smoke Exposure: No Days Per Week of Alcohol Use: 2 Number of Drinks Per Day: 2 Total Drinks Per Week: 4 Recreational Drug Use History: No - HOME MEDS Home Medications: Home Meds Desvenlafaxine Succinate [Pristiq] 50 mg PO DAILY 04/18/19 [History] traZODone HCl [Trazodone HCl] 50 mg PO BEDTIME 08/08/19 [History] LORazepam [Ativan] 1 mg PO TID PRN #12 tab 08/10/19 [Rx] - CURRENT (IN HOUSE) MEDS Current Meds: Current Medications Dextrose/Sodium Chloride (Dextrose 5%-Normal Saline) 1,000 mls @ 999 mls/hr IV ASDIRECTED ARLENE Last Admin: 11/11/20 13:46 Dose: 999 mls/hr Documented by: Sodium Chloride (Saline Flush) 10 ml FLUSH ONETIME PRN PRN Reason: Keep Vein Open Last Admin: 11/11/20 13:55 Dose: 10 ml Documented by: Discontinued Medications Bupivacaine HCl/Epinephrine Bitart (Marcaine 0.5%/Epinephrine 1:200,000) Confirm Administered Dose 50 ml .ROUTE .STK-MED ONE Stop: 11/11/20 15:33 Dexamethasone (Dexamethasone) Confirm Administered Dose 20 mg .ROUTE .STK-MED ONE Stop: 11/11/20 15:28 Fentanyl (Sublimaze) Confirm Administered Dose 250 mcg .ROUTE .STK-MED ONE Stop: 11/11/20 15:27 Hydromorphone HCl (Dilaudid) 0.5 mg IVPUSH ONETIME ONE Stop: 11/11/20 13:33 Last Admin: 11/11/20 13:44 Dose: 0.5 mg Documented by: Cefoxitin Sodium 2 gm/ Premix 50 mls @ 100 mls/hr IV ONETIME ONE Stop: 11/11/20 14:54 Last Admin: 11/11/20 14:38 Dose: 100 mls/hr Documented by: Lidocaine HCl (Xylocaine-Mpf 1%) Confirm Administered Dose 4 mls @ as directed .ROUTE .STK-MED ONE Stop: 11/11/20 15:27 Iopamidol (Isovue-300 (61%)) 25 ml IVPUSH ONETIME ONE Stop: 11/11/20 13:40 Last Admin: 11/11/20 13:53 Dose: 25 ml Documented by: Iopamidol (Isovue-300 (61%)) 100 ml IVPUSH ONETIME ONE Stop: 11/11/20 13:40 Last Admin: 11/11/20 13:53 Dose: 100 ml Documented by: Metoclopramide HCl (Reglan) 7.5 mg IVPUSH ONETIME ONE Stop: 11/11/20 13:33 Last Admin: 11/11/20 13:41 Dose: 7.5 mg Documented by: Midazolam HCl (Versed 1 Mg/Ml) Confirm Administered Dose 2 mg .ROUTE .STK-MED ONE Stop: 11/11/20 15:27 Ondansetron HCl (Zofran) Confirm Administered Dose 4 mg .ROUTE .STK-MED ONE Stop: 11/11/20 15:27 Propofol (Diprivan 20 Ml) Confirm Administered Dose 200 mg .ROUTE .STK-MED ONE Stop: 11/11/20 15:27 Rocuronium [place] (Zemuron) Confirm Administered Dose 50 mg .ROUTE .STK-MED ONE Stop: 11/11/20 15:27
--- NOTE | 2020-11-11 15:44 | PCM.CONS ---
H&P History of Present Illness - General Date of Service: 11/11/20 Admit Problem/Dx: Admission Diagnosis/Problem Admission Diagnosis/Problem Appendicitis Source of Information: Patient History Limitations: Reports: No Limitations - History of Present Illness Initial Comments - Free Text/Narative: Patient woke up this morning with generalized abdominal pain and nausea. She i nitially thought this was menstrual cramps and tried to watch it at home but the pain persisted and she presented to the ED. WBC was [address] scan confirmed acute appendicitis. No cardio-pulmonary issues. No fevers or chills. No diarrhea Onset of Symptoms: Reports: Today Duration of Symptoms: Reports: Day(s): (1), Getting Worse Location: Reports: Abdomen Quality: Reports: Sharp Severity: Moderate Improves with: Reports: Immobilization Worsens with: Reports: Movement Associated Symptoms: Reports: Nausea/Vomiting Abdomen Pain Score (Numeric/FACES): 5 - Related Data Allergies/Adverse Reactions: Allergies Allergy/AdvReac Type Severity Reaction Status Date / Time No Known Allergies Allergy Verified 08/10/19 15:07 Home Medications: Home Meds Desvenlafaxine Succinate [Pristiq] 50 mg PO DAILY 04/18/19 [History] traZODone HCl [Trazodone HCl] 50 mg PO BEDTIME 08/08/19 [History] LORazepam [Ativan] 1 mg PO TID PRN #12 tab 08/10/19 [Rx] Past Medical History - Past Health History Medical/Surgical History: Denies Medical/Surgical History Gastrointestinal History: Reports: GERD 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: Reports: Fibroids, , 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 Musculoskeletal History: Reports: Fracture Other Musculoskeletal History: Right foot fracture with ORIF Psychiatric History: Reports: Depression - Past Surgical History Musculoskeletal Surgical History: Reports: ORIF Social & Family History - Family History Family Medical History: No Pertinent Family History Psychiatric: Reports: Depression - Tobacco Use Tobacco Use Status *Q: Former Tobacco User Used Tobacco, but Quit: Yes Month/Year Tobacco Last Used: 1 month - Caffeine Use Caffeine Use: Reports: Soda - Recreational Drug Use Recreational Drug Use: No - Living Situation & Occupation Living situation: Reports: Single, with Significant Other (Boyfriend), with Family (2 daughters) 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) H&P Review of Systems - Review of Systems: Review Of Systems: See Below General: Reports: No Symptoms HEENT: Reports: No Symptoms Pulmonary: Reports: No Symptoms Cardiovascular: Reports: No Symptoms Gastrointestinal: Reports: Abdominal Pain (RLQ), Nausea Musculoskeletal: Reports: No Symptoms Skin: Reports: No Symptoms Psychiatric: Reports: No Symptoms Neurological: Reports: No Symptoms Hematologic/Lymphatic: Reports: No Symptoms Immunologic: Reports: No Symptoms Exam - Exam Exam: See Below - Vital Signs Vital Signs: Last Vital Signs Temp 99.5 F 11/11/20 11:52 Pulse 95 11/11/20 11:52 Resp 20 11/11/20 11:52 BP 125/72 11/11/20 11:52 Pulse Ox 98 11/11/20 11:52 Weight: 92.164 kg - Exam General: Alert, Oriented, Cooperative Lungs: Clear to Auscultation, Normal Respiratory Effort Cardiovascular: Regular Rate, Regular Rhythm, Normal S1, Normal S2 GI/Abdominal Exam: Soft, No Distention, No Abnormal Bruit, No Mass, Tender (RLQ) - Patient Data Lab Results Last 24 hrs: Laboratory Results - last 24 hr 11/11/20 11/11/20 11/11/20 Range/Units 12:15 12:15 12:15 WBC 17.66 H (3.98-10.04) K/mm3 RBC 4.88 (3.98-5.22) M/mm3 Hgb 14.7 (11.2-15.7) gm/dl Hct 43.3 (34.1-44.9) % MCV 88.7 (79.4-94.8) fl MCH 30.1 (25.6-32.2) pg MCHC 33.9 (32.2-35.5) g/dl RDW Std Deviation 42.7 (36.4-46.3) fL Plt Count 255 (182-369) K/mm3 MPV 10.5 (9.4-12.3) fl Neut % (Auto) 88.6 H (34.0-71.1) % Lymph % (Auto) 5.3 L (19.3-51.7) % [place] % (Auto) 5.3 (4.7-12.5) % Eos % (Auto) 0.3 L (0.7-5.8) Baso % (Auto) 0.2 (0.1-1.2) % Neut # (Auto) 15.64 H (1.56-6.13) K/mm3 Lymph # (Auto) 0.94 L (1.18-3.74) K/mm3 [place] # (Auto) 0.93 H (0.24-0.36) K/mm3 Eos # (Auto) 0.06 (0.04-0.36) K/mm3 Baso # (Auto) 0.03 (0.01-0.08) K/mm3 Manual Slide Review Abnormal smear Sodium (136-145) mEq/L Potassium (3.5-5.1) mEq/L Chloride (98-107) mEq/L Carbon Dioxide (21-32) mEq/L Anion Gap (5-15) BUN (7-18) mg/dL Creatinine (0.55-1.02) mg/dL Est Cr Clr Drug Dosing mL/min Estimated GFR (MDRD) (>60) mL/min BUN/Creatinine Ratio (14-18) Glucose (74-106) mg/dL Calcium (8.5-10.1) mg/dL Total Bilirubin (0.2-1.0) mg/dL AST (15-37) U/L ALT (14-59) U/L Alkaline Phosphatase (46-116) U/L C-Reactive Protein (<1.0) mg/dL Total Protein (6.4-8.2) g/dl Albumin (3.4-5.0) g/dl Globulin gm/dL Albumin/Globulin Ratio (1-2) Lipase (73-393) U/L Urine Color Yellow (Yellow) Urine Appearance Slt cloudy H (Clear) Urine pH 5.5 (5.0-8.0) Ur Specific [place] > or = 1.030 (1.005-1.030) Urine Protein 1+ H (Negative) Urine Glucose (UA) Negative (Negative) Urine Ketones 1+ H (Negative) Urine Occult Blood 3+ H (Negative) Urine Nitrite Negative (Negative) Urine Bilirubin 1+ H (Negative) Urine Urobilinogen 0.2 (0.2-1.0) Ur Leukocyte Esterase Negative (Negative) Urine RBC 50-75 H (0-5) /hpf Urine WBC 5-10 H (0-5) /hpf Ur Epithelial Cells 5-10 H (0-5) /hpf Urine Bacteria Few (FEW) /hpf Urine Mucus Few (FEW) /hpf Urine HCG, Qual Negative (NEGATIVE) SARS-CoV-2 RNA (WILLIAM) (NEGATIVE) 11/11/20 11/11/20 Range/Units 12:15 14:25 WBC (3.98-10.04) K/mm3 RBC (3.98-5.22) M/mm3 Hgb (11.2-15.7) gm/dl Hct (34.1-44.9) % MCV (79.4-94.8) fl MCH (25.6-32.2) pg MCHC (32.2-35.5) g/dl RDW Std Deviation (36.4-46.3) fL Plt Count (182-369) K/mm3 MPV (9.4-12.3) fl Neut % (Auto) (34.0-71.1) % Lymph % (Auto) (19.3-51.7) % Hill % (Auto) (4.7-12.5) % Eos % (Auto) (0.7-5.8) Baso % (Auto) (0.1-1.2) % Neut # (Auto) (1.56-6.13) K/mm3 Lymph # (Auto) (1.18-3.74) K/mm3 [place] # (Auto) (0.24-0.36) K/mm3 Eos # (Auto) (0.04-0.36) K/mm3 Baso # (Auto) (0.01-0.08) K/mm3 Manual Slide Review Sodium 139 (136-145) mEq/L Potassium 3.3 L (3.5-5.1) mEq/L Chloride 102 (98-107) mEq/L Carbon Dioxide 25 (21-32) mEq/L Anion Gap 15.3 H (5-15) BUN 8 (7-18) mg/dL Creatinine 0.9 (0.55-1.02) mg/dL Est Cr Clr Drug Dosing 88.07 mL/min Estimated GFR (MDRD) > 60 (>60) mL/min BUN/Creatinine Ratio 8.9 L (14-18) Glucose 106 (74-106) mg/dL Calcium 8.5 (8.5-10.1) mg/dL Total Bilirubin 0.6 (0.2-1.0) mg/dL AST 25 (15-37) U/L ALT 40 (14-59) U/L Alkaline Phosphatase 65 (46-116) U/L C-Reactive Protein 0.4 (<1.0) mg/dL Total Protein 8.1 (6.4-8.2) g/dl Albumin 4.1 (3.4-5.0) g/dl Globulin 4.0 gm/dL Albumin/Globulin Ratio 1.0 (1-2) Lipase 118 (73-393) U/L Urine Color (Yellow) Urine Appearance (Clear) Urine pH (5.0-8.0) Ur Specific [place] (1.005-1.030) Urine Protein (Negative) Urine Glucose (UA) (Negative) Urine Ketones (Negative) Urine Occult Blood (Negative) Urine Nitrite (Negative) Urine Bilirubin (Negative) Urine Urobilinogen (0.2-1.0) Ur Leukocyte Esterase (Negative) Urine RBC (0-5) /hpf Urine WBC (0-5) /hpf Ur Epithelial Cells (0-5) /hpf Urine Bacteria (FEW) /hpf Urine Mucus (FEW) /hpf Urine HCG, Qual (NEGATIVE) SARS-CoV-2 RNA (WILLIAM) Negative (NEGATIVE) Result Diagrams: 11/11/20 12:15 11/11/20 12:15 Sepsis Event Note - Evaluation Sepsis Screening Result: No Definite Risk - Focused Exam Vital Signs: Vital Signs Temp Pulse Resp BP Pulse Ox 11/11/20 11:52 99.5 F 95 20 125/72 98 Consult PN Assessment/Plan Procedures: Procedures APPLICATION LOWER LEG SPLINT (06/29/16) ASSAY OF MAGNESIUM (03/02/19) ASSAY OF PROGESTERONE (01/19/18) ASSAY THYROID STIM HORMONE (08/10/19) BL SMEAR W/DIFF WBC COUNT (03/02/19) BLOOD TYPING SEROLOGIC ABO (03/03/18) BLOOD TYPING SEROLOGIC RH(D) (03/03/18) C-REACTIVE PROTEIN (04/18/19) CARE OF MISCARRIAGE (10/09/17) CHEST X-RAY 2VW FRONTAL&LATL (07/23/16) CHORIONIC GONADOTROPIN ASSAY (04/18/19) CHORIONIC GONADOTROPIN TEST (12/02/18) CHYLMD TRACH DNA AMP PROBE (09/10/17) COMPLETE CBC AUTOMATED (03/02/19) COMPLETE CBC W/AUTO DIFF WBC (08/10/19) COMPREHEN METABOLIC PANEL (08/10/19) CT LOWER EXTREMITY W/DYE (04/18/19) DETECT AGNT MULT DNA AMPLI (05/07/16) DRUG TEST PRSMV INSTRMNT (08/10/19) ELECTROCARDIOGRAM TRACING (03/02/19) EMERGENCY DEPT VISIT (08/10/19) EMERGENCY DEPT VISIT (03/02/19) EMERGENCY DEPT VISIT (09/30/17) EMERGENCY DEPT VISIT (07/23/16) EMERGENCY DEPT VISIT (06/29/16) BIOPHYS PROFIL W/O NST (09/08/18) NON-STRESS TEST (09/07/18) FIBRIN DEGRADATION QUANT (04/18/19) GLUCOSE TEST (06/16/18) GLUCOSE TOLERANCE TEST (GTT) (06/21/18) HEMOGLOBIN (07/13/14) HEPATITIS B SURFACE AG IA (09/10/17) HYDRATE IV INFUSION ADD-ON (04/18/19) HYDRATION IV INFUSION INIT (09/05/18) METABOLIC PANEL TOTAL CA (03/02/19) N.GONORRHOEAE DNA AMP PROB (09/10/17) OB US >/= 14 WKS SNGL FETUS (05/05/18) OB US FOLLOW-UP PER FETUS (09/08/18) OB US LIMITED FETUS(S) (06/05/14) RBC ANTIBODY SCREEN (03/03/18) RBC SED RATE AUTOMATED (04/18/19) ROUTINE VENIPUNCTURE (08/10/19) RUBELLA ANTIBODY (09/10/17) SMEAR WET [place] SALINE/INK (05/07/16) STREP B DNA AMP PROBE (09/05/18) SYPHILIS TEST NON-TREP QUAL (06/16/18) THER/PROPH/DIAG INJ IV PUSH (04/18/19) THER/PROPH/DIAG INJ SC/IM (08/10/18) THER/PROPH/DIAG IV INF INIT (03/02/19) TRANSVAGINAL US OBSTETRIC (01/28/18) TX/PRO/DX INJ NEW DRUG ADDON (06/29/16) TX/PRO/DX INJ SAME DRUG 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 I discussed with her options for treatment including antibiotics and surgery. We discussed risks and benefits for each option. The patient would like to pursue surgery. Specific risks for surgery discussed include bleeding, infection, injury to adjacent structures. We discussed post op expectations including weight lifting restriction of no more than 20lb for 2 weeks. Informed consent was signed. We will proceed with surgery today.
[2020-11-11] MEDS ORDERED: Lactated Ringers 1,000 ML ONE (15:47)
[2020-11-11] MEDS ORDERED: HYDROmorphone 0.5 MG/0.5 ML Syringe IVPUSH PRN (16:10)
[2020-11-11] MEDS ORDERED: fentaNYL 100 MCG/2 ML SDV IVPUSH PRN (16:10)
[2020-11-11] MEDS ORDERED: Ondansetron 4 MG/2 ML SDV IVPUSH PRN (16:10)
[2020-11-11] MEDS ORDERED: Ketorolac 30 MG/ML SDV ONE (16:18)
[2020-11-11] MEDS ORDERED: HYDROmorphone 0.5 MG/0.5 ML Syringe ONE (16:23)
--- NOTE | 2020-11-11 17:15 | PCM.POSTAN ---
POST ANESTHESIA ASSESSMENT - MENTAL STATUS Mental Status: Alert, Oriented - VITAL SIGNS Vital Signs: Last Vital Signs Temp 98.6 F 11/11/20 15:45 Pulse 104 H 11/11/20 15:45 Resp 20 11/11/20 15:45 BP 113/94 H 11/11/20 15:45 Pulse Ox 99 11/11/20 15:45 1709 129/75 100% 86 11 98.3 - RESPIRATORY Respiratory Status: Respiratory Rate WNL, Airway Patent, O2 Saturation Stable, Supplemental Oxygen - CARDIOVASCULAR CV Status: Pulse Rate WNL, Blood Pressure Stable - GASTROINTESTINAL GI Status: No Symptoms - PAIN Pain Score: 2 (medicated) - POST OP HYDRATION Hydration Status: Adequate & Stable
--- NOTE | 2020-11-11 17:49 | PCM48HPAN ---
Post Anesthesia Note - EVALUATION WITHIN 48HRS OF ANESTHETIC Vital Signs in Normal Range: Yes Patient Participated in Evaluation: Yes Respiratory Function Stable: Yes Airway Patent: Yes Cardiovascular Function Stable: Yes Hydration Status Stable: Yes Pain Control Satisfactory: Yes Nausea and Vomiting Control Satisfactory: Yes Mental Status Recovered: Yes Vital Signs: Last Vital Signs Temp 97.9 F 11/11/20 17:25 Pulse 81 11/11/20 17:25 Resp 15 11/11/20 17:25 BP 113/67 11/11/20 17:25 Pulse Ox 97 11/11/20 17:25
[2020-11-11] MEDS ORDERED: Acetaminophen/oxyCODONE 325-5 MG Tab PO PRN ×2 (18:11→19:07)
[2020-11-11 19:41] VITALS: BP 113/58; PULSE 85
--- NOTE | 2020-11-11 20:43 | OR ---
DATE OF OPERATION: 11/11/2020 SURGEON: Roland Rios MD PREOPERATIVE DIAGNOSIS: Acute appendicitis. POSTOPERATIVE DIAGNOSIS: Acute appendicitis. PROCEDURE: Laparoscopic appendectomy. ESTIMATED BLOOD LOSS: 5 mL. ANESTHESIA: General endotracheal. COMPLICATIONS: None. INDICATIONS AND CONSENT: The patient is a 29-year-old female, who started having acute generalized abdominal pain this morning, the pain progressed and eventually settled in the right lower quadrant. The patient presented to the emergency department due to persistently severe pain. She also had nausea. In the ED, white count was 17. CT scan confirmed acute appendicitis. I was consulted to see the patient and I confirmed the findings. I offered the patient both antibiotic treatment and surgery. We discussed these 2 options including risks, benefits, and benefits for each. The patient wanted to proceed with surgical therapy. Specific surgical risks that were discussed include infection, injury to adjacent abdominal structures. Questions were answered and informed consent was obtained. DESCRIPTION OF PROCEDURE: The patient was taken to the operating room, placed in supine position. The patient was padded appropriately. A time-out was performed. General endotracheal anesthesia was induced. Antibiotic cefoxitin had already been given, so none was indicated at this time. Then, the abdomen was prepped and draped in the usual sterile fashion. We began by making infraumbilical incision after injecting 1% lidocaine. The umbilical stalk was elevated. Veress needle was introduced into the abdomen. The abdomen was insufflated to 15 mmHg. Then, a 12 mm trocar was inserted through the infraumbilical position under direct visualization of laparoscope. There was no injuries that were noted due to Veress needle or trocar insertion. Then, two 5 mm trocars were placed, one in the suprapubic area and another one in the left lower quadrant. We began by exploring the abdomen. There was some mild amount of free fluid in the pelvis. The patient was placed in slight Trendelenburg position and left sided down, and then we found the appendix in the right lower quadrant. The appendix was elevated and was inflamed except at the base. The base was isolated and a window was made at the appendiceal base and the appendix was divided using a blue load Endo-AYESHA stapler at its base. The mesoappendix was divided with LigaSure Impact. Once this was done, the appendix was placed in the EndoCatch bag and some free fluid was removed from the abdomen with a 4 x 4 gauze. Once this was done, the staple line and mesoappendix edge were reinspected and found to be intact without any bleeding. At this point then, we proceeded with removing the appendix from the abdomen, which was passed off for pathology exam. The fascia at the infraumbilical incision was closed with 0 Vicryl stitches using Micha-Juan Ramon device and skin at all 3 sites were closed with 4-0 Monocryl and Dermabond was applied. Once this was done, the abdomen had already been desufflated, counts were correct x2. The patient was awoken and extubated and taken to the PACU for recovery. The patient will be allowed to return home today if doing well. OPERATION PERFORMED: MMODAL /[id number] MTDD
--- NOTE | 2020-11-12 08:08 | CT ---
CT abdomen and pelvis Technique: Multiple axial sections were obtained from above the dome of the diaphragm inferiorly through the pubic symphysis. Intravenous contrast was utilized. No oral contrast has been given. Delayed images were obtained through the bladder. Reconstructed coronal and sagittal images were obtained. Comparison: No prior abdominal CT abdomen or pelvis study is available. Findings: Appendix is dilated. Mild inflammatory change is seen around the appendix. Findings are compatible with early appendicitis. Visualized lung bases show nothing acute. Liver shows mild fatty infiltration. Spleen appears normal. Adrenal glands show no nodule. Gallbladder contains no calcified gallstones. Pancreas appears within normal limits. Kidneys show symmetric contrast enhancement with no hydronephrosis or mass being seen. Abdominal aorta shows no aneurysm. No retroperitoneal adenopathy or mesenteric abnormalities are seen. Minimal fluid is seen within the pelvis most likely physiologic. No additional pelvic abnormality is appreciated. Delayed images show contrast within both distal ureters and the bladder. Bone window settings were reviewed which show no acute osseous finding. Impression: 1. Findings compatible with early appendicitis. 2. Other nonacute findings as noted above. 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
== END 2020-11-11 19:45 | disposition home or self-care (01) ==
LOC: JD.ED 11:24 → JD.SDS 15:17
PROVIDERS: ATTEND Surgery
DX: K35.30 Acute appendicitis with localized peritonitis, without perforation or gangrene (principal); E66.9 Obesity, unspecified; Z79.899 Other long term (current) drug therapy; Z87.891 Personal history of nicotine dependence; Z01.812 Encounter for preprocedural laboratory examination; Z20.822 Contact with and (suspected) exposure to COVID-19; Z68.31 Body mass index [BMI] 31.0-31.9, adult
CPT/HCPCS: 36415; 44970; 74177; 80053; 81001; 81025; 83690; 85025; 86140; 87635; 96365; 96375; 99285; J0694; J1100; J1170; J1885; J2001; J2250; J2704; J2765; J3010; J3490; J7042; J7120; Q9967; 00840; J2405; U0002

== ENCOUNTER 2020-12-05 08:34 | Emergency (ER) | payer SELFPAY ==
[2020-12-05 08:52] VITALS: BP 132/84; PULSE 71
[2020-12-05] MEDS ORDERED: Sodium Chloride 0.9% 1,000 ML IV STA (09:05)
[2020-12-05] MEDS ORDERED: Sodium Chloride 0.9% 10 ML Syringe FLUSH PRN ×2 (09:05→09:58)
[2020-12-05] MEDS ORDERED: Ondansetron 4 MG/2 ML SDV IVPUSH ONE (09:05)
[2020-12-05] MEDS ORDERED: HYDROmorphone 1 MG/ML Syringe IVPUSH ONE (09:07)
[2020-12-05] MEDS ORDERED: Iopamidol 612 MG/ML 100 ML Bottle IVPUSH ONE (09:58)
[2020-12-05] MEDS ORDERED: Diatrizoate Meglumine/Diatrizoate Sodium 37% 120 ML Bottle PO ONE (09:58)
--- NOTE | 2020-12-05 10:32 | CT ---
CT abdomen and pelvis Technique: Multiple axial sections were obtained from above the dome of the diaphragm inferiorly through the pubic symphysis. Intravenous and oral contrast was utilized. Reconstructed coronal and sagittal images were obtained. Comparison: Prior CT abdomen and pelvis exam of 11/11/20. Findings: Visualized lung bases show nothing acute. Liver shows mild fatty infiltration. No focal abnormality is appreciated within the liver. Spleen appears within normal limits. Adrenal glands show no nodule. Pancreas shows no discrete abnormality. Gallbladder contains no calcified gallstones. Kidneys show symmetric contrast enhancement with no hydronephrosis or mass being seen. Abdominal aorta shows no aneurysm. No retroperitoneal adenopathy is noted. Previous appendectomy is seen with surgical clips being noted. Small amount of free fluid is seen within the cul-de-sac most likely physiologic. Pelvis is otherwise unremarkable. No free fluid or inflammatory change is appreciated. Slight early scarring is seen within the anterior abdomen next to the abdominal wall muscles. No focal fluid collections of abscess are seen. Bone window settings were reviewed which show no acute osseous finding. Impression: 1. Stable findings as noted above. Interval appendectomy. 2. Fluid within the pelvis which is most likely physiologic. 3. No additional abnormality is appreciated on CT abdomen and pelvis study. Diagnostic code #2
--- NOTE | 2020-12-05 10:46 | EDM.PDOC ---
ED HPI GENERAL MEDICAL PROBLEM - General Chief Complaint: Abdominal Pain Stated Complaint: ABDOMINAL PAIN Time Seen by Provider: 12/05/20 08:44 Source of Information: Reports: Patient History Limitations: Reports: No Limitations - History of Present Illness INITIAL COMMENTS - FREE TEXT/NARRATIVE: The patient presents with right lower quadrant abdominal pain. This started a couple of days ago. On the she had an appendectomy done by Dr Rios. There were no complications and she was feeling good until 2 days ago. She has no nausea or vomiting. She has no diarrhea. She last had a bowel movement 2 days ago. She has no dysuria. She has no fever, chills, cough, chest pain or shortness of breath. She has no other health problems. Onset: Gradual Duration: Day(s): Location: Reports: Abdomen Quality: Reports: Sharp Severity: Moderate Improves with: Reports: None Worsens with: Reports: None Associated Symptoms: Reports: No Other Symptoms Lower Abdominal Pain Score (Numeric/FACES): 8 - Related Data Allergies Allergy/AdvReac Type Severity Reaction Status Date / Time No Known Allergies Allergy Verified 12/05/20 08:52 Home Meds: Home Meds Desvenlafaxine Succinate [Pristiq] 50 mg PO DAILY 04/18/19 [History] traZODone HCl [Trazodone HCl] 50 mg PO BEDTIME 08/08/19 [History] LORazepam [Ativan] 1 mg PO TID PRN #12 tab 08/10/19 [Rx] Docusate Sodium [Colace] 100 mg PO Q12H 15 Days #30 capsule 11/11/20 [Rx] oxyCODONE HCl/Acetaminophen [Percocet 5-325 mg Tablet] 1 each PO Q6H PRN 3 Days #12 tablet 11/11/20 [Rx] cephALEXin [Keflex] 500 mg PO BID #10 cap 12/05/20 [Rx] Past Medical History - Past Health History Medical/Surgical History: Denies Medical/Surgical History Cardiovascular History: Reports: None Respiratory History: Reports: None Gastrointestinal History: Reports: GERD 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, , 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 Musculoskeletal History: Reports: Fracture Other Musculoskeletal History: Right foot fracture with ORIF Psychiatric History: Reports: Depression Endocrine/Metabolic History: Reports: Obesity/BMI 30+ Oncologic (Cancer) History: Reports: None - Past Surgical History GI Surgical History: Reports: Appendectomy Musculoskeletal Surgical History: Reports: ORIF Social & Family History - Family History Family Medical History: No Pertinent Family History Psychiatric: Reports: Depression - Tobacco Use Tobacco Use Status *Q: Never Tobacco User - Caffeine Use Caffeine Use: Reports: Soda - Living Situation & Occupation Living situation: Reports: Single, with Significant Other (Boyfriend), with Family (2 daughters) 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 Denies: Nausea, Vomiting : Reports: No Symptoms Musculoskeletal: Reports: No Symptoms ED EXAM, GI/ABD - Physical Exam Exam: See Below Exam Limited By: No Limitations General Appearance: Alert, No Apparent Distress Ears: Normal External Exam Nose: Normal Inspection Head: Atraumatic, Normocephalic Neck: Normal Inspection Respiratory/Chest: No Respiratory Distress, Lungs Clear, Normal Breath Sounds Cardiovascular: Regular Rate, Rhythm, No Edema, No Murmur GI/Abdominal Exam: Soft, No Organomegaly, No Mass, Tender (Moderate pain upon palpation to the right lower abdomen) Course - Vital Signs Last Recorded V/S: Last Vital Signs Temp 97.3 F 12/05/20 08:50 Pulse 71 12/05/20 08:50 Resp 16 12/05/20 08:50 BP 132/84 12/05/20 08:50 Pulse Ox 100 12/05/20 08:50 - Orders/Labs/Meds Orders: Active Orders 24 hr Category Date Time Status Peripheral IV Care [RC] . DIRECTED Care 12/05/20 09:05 Active Sodium Chloride 0.9% [Saline Flush] Med 12/05/20 09:05 Active 10 ml FLUSH ASDIRECTED PRN Sodium Chloride 0.9% [Saline Flush] Med 12/05/20 09:58 Active 10 ml FLUSH ONETIME PRN ED Antiemetic Medication Reflex [OM.PC] Stat Oth 12/05/20 09:05 Ordered Peripheral IV Insertion Adult [OM.PC] Stat Oth 12/05/20 09:05 Ordered Medication Orders Sodium Chloride (Saline Flush) 10 ml FLUSH ASDIRECTED PRN PRN Reason: Keep Vein Open Last Admin: 12/05/20 09:17 Dose: 10 ml Documented by: MARY JANE Sodium Chloride (Saline Flush) 10 ml FLUSH ONETIME PRN PRN Reason: IV FLUSH Last Admin: 12/05/20 10:12 Dose: 10 ml Documented by: SUREKHA Labs: Laboratory Tests 12/05/20 12/05/20 12/05/20 Range/Units 09:11 09:11 09:11 WBC 6.70 (3.98-10.04) K/mm3 RBC 4.73 (3.98-5.22) M/mm3 Hgb 14.3 (11.2-15.7) gm/dl Hct 42.7 (34.1-44.9) % MCV 90.3 (79.4-94.8) fl MCH 30.2 (25.6-32.2) pg MCHC 33.5 (32.2-35.5) g/dl RDW Std Deviation 43.6 (36.4-46.3) fL Plt Count 270 (182-369) K/mm3 MPV 10.1 (9.4-12.3) fl Neut % (Auto) 46.8 (34.0-71.1) % Lymph % (Auto) 36.9 (19.3-51.7) % [place] % (Auto) 10.1 (4.7-12.5) % Eos % (Auto) 5.5 (0.7-5.8) Baso % (Auto) 0.6 (0.1-1.2) % Neut # (Auto) 3.13 (1.56-6.13) K/mm3 Lymph # (Auto) 2.47 (1.18-3.74) K/mm3 [place] # (Auto) 0.68 H (0.24-0.36) K/mm3 Eos # (Auto) 0.37 H (0.04-0.36) K/mm3 Baso # (Auto) 0.04 (0.01-0.08) K/mm3 Sodium 139 (136-145) mEq/L Potassium 3.9 (3.5-5.1) mEq/L Chloride 103 (98-107) mEq/L Carbon Dioxide 24 (21-32) mEq/L Anion Gap 15.9 H (5-15) BUN 11 (7-18) mg/dL Creatinine 0.9 (0.55-1.02) mg/dL Est Cr Clr Drug Dosing 87.27 mL/min Estimated GFR (MDRD) > 60 (>60) mL/min BUN/Creatinine Ratio 12.2 L (14-18) Glucose 98 (74-106) mg/dL Calcium 8.9 (8.5-10.1) mg/dL Total Bilirubin 0.6 (0.2-1.0) mg/dL AST 23 (15-37) U/L ALT 34 (14-59) U/L Alkaline Phosphatase 58 (46-116) U/L Total Protein 8.0 (6.4-8.2) g/dl Albumin 3.9 (3.4-5.0) g/dl Globulin 4.1 gm/dL Albumin/Globulin Ratio 1.0 (1-2) Lipase 245 (73-393) U/L HCG, Qual (NEGATIVE) Urine Color Yellow (Yellow) Urine Appearance Clear (Clear) Urine pH 5.5 (5.0-8.0) Ur Specific [place] > or = 1.030 (1.005-1.030) Urine Protein Negative (Negative) Urine Glucose (UA) Negative (Negative) Urine Ketones Negative (Negative) Urine Occult Blood Trace-lysed H (Negative) Urine Nitrite Negative (Negative) Urine Bilirubin Negative (Negative) Urine Urobilinogen 0.2 (0.2-1.0) Ur Leukocyte Esterase Trace H (Negative) Urine RBC 5-10 H (0-5) /hpf Urine WBC 5-10 H (0-5) /hpf Ur Squamous Epith Cells 0-5 (0-5) /hpf Urine Bacteria Few (FEW) /hpf Urine Mucus Moderate H (FEW) /hpf 12/05/20 Range/Units 09:11 WBC (3.98-10.04) K/mm3 RBC (3.98-5.22) M/mm3 Hgb (11.2-15.7) gm/dl Hct (34.1-44.9) % MCV (79.4-94.8) fl MCH (25.6-32.2) pg MCHC (32.2-35.5) g/dl RDW Std Deviation (36.4-46.3) fL Plt Count (182-369) K/mm3 MPV (9.4-12.3) fl Neut % (Auto) (34.0-71.1) % Lymph % (Auto) (19.3-51.7) % [place] % (Auto) (4.7-12.5) % Eos % (Auto) (0.7-5.8) Baso % (Auto) (0.1-1.2) % Neut # (Auto) (1.56-6.13) K/mm3 Lymph # (Auto) (1.18-3.74) K/mm3 [place] # (Auto) (0.24-0.36) K/mm3 Eos # (Auto) (0.04-0.36) K/mm3 Baso # (Auto) (0.01-0.08) K/mm3 Sodium (136-145) mEq/L Potassium (3.5-5.1) mEq/L Chloride (98-107) mEq/L Carbon Dioxide (21-32) mEq/L Anion Gap (5-15) BUN (7-18) mg/dL Creatinine (0.55-1.02) mg/dL Est Cr Clr Drug Dosing mL/min Estimated GFR (MDRD) (>60) mL/min BUN/Creatinine Ratio (14-18) Glucose (74-106) mg/dL Calcium (8.5-10.1) mg/dL Total Bilirubin (0.2-1.0) mg/dL AST (15-37) U/L ALT (14-59) U/L Alkaline Phosphatase (46-116) U/L Total Protein (6.4-8.2) g/dl Albumin (3.4-5.0) g/dl Globulin gm/dL Albumin/Globulin Ratio (1-2) Lipase (73-393) U/L HCG, Qual Negative (NEGATIVE) Urine Color (Yellow) Urine Appearance (Clear) Urine pH (5.0-8.0) Ur Specific [place] (1.005-1.030) Urine Protein (Negative) Urine Glucose (UA) (Negative) Urine Ketones (Negative) Urine Occult Blood (Negative) Urine Nitrite (Negative) Urine Bilirubin (Negative) Urine Urobilinogen (0.2-1.0) Ur Leukocyte Esterase (Negative) Urine RBC (0-5) /hpf Urine WBC (0-5) /hpf Ur Squamous Epith Cells (0-5) /hpf Urine Bacteria (FEW) /hpf Urine Mucus (FEW) /hpf Meds: Medications Generic Name Dose Route Start Last Admin Trade Name Nicolasa PRN Reason Stop Dose Admin Sodium Chloride 10 ml 12/05/20 09:05 12/05/20 09:17 Saline Flush FLUSH 10 ml ASDIRECTED PRN Administration Keep Vein Open Sodium Chloride 10 ml 12/05/20 09:58 12/05/20 10:12 Saline Flush FLUSH 10 ml ONETIME PRN Administration IV FLUSH Discontinued Medications Generic Name Dose Route Start Last Admin Trade Name Nicolasa PRN Reason Stop Dose Admin Diatrizoate Meglum/Diatrizoate Sod 120 ml 12/05/20 09:58 12/05/20 10:12 Gastrografin 37% PO 12/05/20 09:59 45 ml ONETIME ONE Administration Hydromorphone HCl 1 mg 12/05/20 09:07 12/05/20 09:17 Dilaudid IVPUSH 12/05/20 09:08 1 mg ONETIME ONE Administration Sodium Chloride 1,000 mls @ 1,000 mls/hr 12/05/20 09:05 12/05/20 09:15 Normal Saline IV 12/05/20 10:04 1,000 mls/hr .BOLUS STA Administration Iopamidol 100 ml 12/05/20 09:58 12/05/20 10:12 Isovue-300 (61%) IVPUSH 12/05/20 09:59 100 ml ONETIME ONE Administration Ondansetron HCl 4 mg 12/05/20 09:05 12/05/20 09:16 Zofran IVPUSH 12/05/20 09:06 4 mg ONETIME ONE Administration - Re-Assessments/Exams Free Text/Narrative Re-Assessment/Exam: 12/05/20 10:43 I ordered an IV NS 1L bolus, zofran 4mg IV, dilaudid IV, labs, UA and a CT of her abdomen and pelvis with IV and oral contrast. Her CBC looks good. Her anion gap was elevated at 15.9. Her lipase was negative. Her HCG is negative. Her UA does show she has a UTI. Her CT shows stable findings. Interval appendectomy. Fluid within the pelvis which is most likely physiologic. No additional abnormality is appreciated on CT abdomen and pelvis study. She has a UTI. I will get her on some keflex. Departure - Departure Time of Disposition: 10:50 Disposition: Home, Self-Care 01 Condition: Good Clinical Impression: Abdominal pain Qualifiers: Abdominal location: right lower quadrant Qualified Code(s): R10.31 - Right lower quadrant pain UTI (urinary tract infection) Qualifiers: Urinary tract infection type: acute cystitis Hematuria presence: without hematuria Qualified Code(s): N30.00 - Acute cystitis without hematuria - Discharge Information *PRESCRIPTION DRUG MONITORING PROGRAM REVIEWED*: Not Applicable *COPY OF PRESCRIPTION DRUG MONITORING REPORT IN PATIENT VARSHA: Not Applicable Prescriptions: cephALEXin [Keflex] 500 mg PO BID #10 cap Referrals: Seda Owens PA-C [Primary Care Provider] - 1 Week Additional Instructions: Drink plenty of fluids. Take the keflex 2 times per day for 5 days. Take tylenol or motrin for any pain. Follow up with your provider within a week. Please return if you are worse. Sepsis Event Note (ED) - Evaluation Sepsis Screening Result: No Definite Risk - Focused Exam Vital Signs: Vital Signs Temp Pulse Resp BP Pulse Ox 12/05/20 08:50 97.3 F 71 16 132/84 100 - My Orders Last 24 Hours: My Active Orders 12/05/20 09:05 Peripheral IV Care [RC] . DIRECTED Sodium Chloride 0.9% [Saline Flush] 10 ml FLUSH ASDIRECTED PRN ED Antiemetic Medication Reflex [OM.PC] Stat Peripheral IV Insertion Adult [OM.PC] Stat 12/05/20 09:58 Sodium Chloride 0.9% [Saline Flush] 10 ml FLUSH ONETIME PRN - Assessment/Plan Last 24 Hours: My Active Orders 12/05/20 09:05 Peripheral IV Care [RC] . DIRECTED Sodium Chloride 0.9% [Saline Flush] 10 ml FLUSH ASDIRECTED PRN ED Antiemetic Medication Reflex [OM.PC] Stat Peripheral IV Insertion Adult [OM.PC] Stat 12/05/20 09:58 Sodium Chloride 0.9% [Saline Flush] 10 ml FLUSH ONETIME PRN
== END 2020-12-05 11:01 | disposition home or self-care (01) ==
LOC: JD.ED 08:34
DX: N30.00 Acute cystitis without hematuria (principal); E66.9 Obesity, unspecified; Z68.31 Body mass index [BMI] 31.0-31.9, adult
CPT/HCPCS: 36415; 74177; 80053; 81001; 83690; 84703; 85025; 96374; 96375; 99284; J1170; J2405; J7030; Q9963; Q9967

== ENCOUNTER 2021-03-27 10:58 | Emergency (ER) | payer SELFPAY ==
[2021-03-27 11:13] VITALS: BP 107/89; PULSE 65
--- NOTE | 2021-03-27 11:51 | EDM.PDOC ---
ED HPI GENERAL MEDICAL PROBLEM - General Chief Complaint: Cardiovascular Problem Stated Complaint: RAPID HEART BEAT/SHAKY HANDS Time Seen by Provider: 03/27/21 11:09 Source of Information: Reports: Patient History Limitations: Reports: No Limitations - History of Present Illness INITIAL COMMENTS - FREE TEXT/NARRATIVE: 30-year-old female presents the emergency department today with complaints of palpitations, with numbness and tingling noted to her bilateral arms and hands and bilateral legs. The patient states that this started yesterday and she felt her heart racing and then had associated numbness and tingling to her extremities. She states she had a difficult time talking at that time as she felt short of breath as well. She states that this eventually resolved however when she woke this morning similar symptoms presented. Patient states that she had a suicide attempt in 2018 and then was started on Pristiq and trazodone. She states that these did seem to help however she has been off her trazodone for quite some time and is has not been sleeping well. She states that she has had several stressors in her personal life associated with relationships, work, and money. She then states that she did not take her Pristiq on Thursday or Thursday of this week as she states she drank heavily and knows that she is not supposed to drink alcohol while taking them. She states that she finds she has been drinking more heavily of late to cope with the stressors in her life. She states that over the course the past couple of days she has had thoughts of suicide however she states she would never go through with that and she does not have a plan at this time. She states that in the past she had seen a counselor however she quit going to him because she did not like him. Her primary care provider is Seda Owens. She states she has probably not seen her for about 4 months. 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, , 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 Musculoskeletal History: Reports: Fracture Other Musculoskeletal History: Right foot fracture with ORIF Psychiatric History: Reports: Anxiety, Depression Endocrine/Metabolic History: Reports: Obesity/BMI 30+ Oncologic (Cancer) History: Reports: None - Past Surgical History GI Surgical History: Reports: Appendectomy Musculoskeletal Surgical History: Reports: ORIF Social & Family History - Family History Family Medical History: No Pertinent Family History Psychiatric: Reports: Depression - Tobacco Use Tobacco Use Status *Q: Former Tobacco User Used Tobacco, but Quit: Yes Month/Year Tobacco Last Used: 03/01 - Caffeine Use Caffeine Use: Reports: Tea - Recreational Drug Use Recreational Drug Use: No - Living Situation & Occupation Living situation: Reports: Single, with Significant Other (Boyfriend), with Family (2 daughters) 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 ED EXAM, GENERAL - Physical Exam Exam: See Below Exam Limited By: No Limitations General Appearance: Alert, WD/WN, Other (Tearful) Ears: Normal External Exam, Hearing Grossly Normal Nose: Normal Inspection Throat/Mouth: Normal Inspection, Normal Lips, Normal Voice, No Airway Compromise Head: Atraumatic Neck: Normal Inspection, Supple Respiratory/Chest: No Respiratory Distress, Lungs Clear, Normal Breath Sounds, No Accessory Muscle Use, Chest Non-Tender Cardiovascular: Normal Peripheral Pulses, Regular Rate, Rhythm, No Edema, No Murmur Peripheral Pulses: 2+: Radial (L), Radial (R) GI/Abdominal: Normal Bowel Sounds, Soft, Non-Tender, No Distention (Female) Exam: Deferred Rectal (Female) Exam: Deferred Back Exam: Normal Inspection Extremities: Normal Inspection, Normal Range of Motion, Non-Tender, No Pedal Edema, Normal Capillary Refill Neurological: Alert, Oriented, Normal Cognition Psychiatric: Normal Affect Skin Exam: Warm, Dry, Intact, Normal Color, No Rash Lymphatic: No Adenopathy Course - Vital Signs Text/Narrative:: Upon assessment, the patient is awake and alert however she is quite tearful. Again she states she has had a lot of increased stressors in her life of recent. Palpitations and numbness and tingling to her extremities are likely the result of anxiety type of symptoms. Discussed at length the fact that she needs to stop drinking heavily to cope with her problems as this creates more anxiety and depression type of symptoms. Discussed the fact that she likely needs to stay on her Pristiq that she had been taking and probably get back on the trazodone to help her sleep as she states her sleeping has been very erratic and she is not able to shut her brain off at night when it is time to sleep. I have ordered labs to include a CBC, CMP, magnesium, troponin, and a TSH. I have also ordered an EKG and a portable view of the chest. I have also spoken to our hospital social studies department chair in regards to getting the patient resources for counseling options. Last Recorded V/S: Last Vital Signs Temp 96.3 F L 03/27/21 11:09 Pulse 65 03/27/21 11:09 Resp 18 03/27/21 11:09 BP 107/89 03/27/21 11:09 Pulse Ox 98 03/27/21 11:09 - Orders/Labs/Meds Orders: Active Orders 24 hr Category Date Time Status EKG Documentation Completion [RC] STAT Care 03/27/21 11:27 Active Labs: Laboratory Tests 03/27/21 03/27/21 Range/Units 11:27 11:37 WBC 4.45 (3.98-10.04) K/mm3 RBC 4.92 (3.98-5.22) M/mm3 Hgb 15.0 (11.2-15.7) gm/dl Hct 43.6 (34.1-44.9) % MCV 88.6 (79.4-94.8) fl MCH 30.5 (25.6-32.2) pg MCHC 34.4 (32.2-35.5) g/dl RDW Std Deviation 41.5 (36.4-46.3) fL Plt Count 288 (182-369) K/mm3 MPV 9.7 (9.4-12.3) fl Neut % (Auto) 50.4 (34.0-71.1) % Lymph % (Auto) 35.1 (19.3-51.7) % [place] % (Auto) 9.4 (4.7-12.5) % Eos % (Auto) 4.0 (0.7-5.8) Baso % (Auto) 0.9 (0.1-1.2) % Neut # (Auto) 2.24 (1.56-6.13) K/mm3 Lymph # (Auto) 1.56 (1.18-3.74) K/mm3 [place] # (Auto) 0.42 H (0.24-0.36) K/mm3 Eos # (Auto) 0.18 (0.04-0.36) K/mm3 Baso # (Auto) 0.04 (0.01-0.08) K/mm3 Manual Slide Review Not Reportable Sodium 140 (136-145) mEq/L Potassium 3.4 L (3.5-5.1) mEq/L Chloride 101 (98-107) mEq/L Carbon Dioxide 25 (21-32) mEq/L Anion Gap 17.4 H (5-15) BUN 6 L (7-18) mg/dL Creatinine 0.9 (0.55-1.02) mg/dL Est Cr Clr Drug Dosing 87.27 mL/min Estimated GFR (MDRD) > 60 (>60) mL/min BUN/Creatinine Ratio 6.7 L (14-18) Glucose 114 H (70-99) mg/dL Calcium 8.6 (8.5-10.1) mg/dL Magnesium 1.7 L (1.8-2.4) mg/dL Total Bilirubin 1.0 (0.2-1.0) mg/dL AST 30 (15-37) U/L ALT 44 (14-59) U/L Alkaline Phosphatase 65 (46-116) U/L Troponin I < 0.017 (0.00-0.056) ng/mL Total Protein 7.8 (6.4-8.2) g/dl Albumin 3.9 (3.4-5.0) g/dl Globulin 3.9 gm/dL Albumin/Globulin Ratio 1.0 (1-2) TSH 3rd Generation 2.024 (0.358-3.74) uIU/mL - Re-Assessments/Exams Free Text/Narrative Re-Assessment/Exam: 03/27/21 12:25 Hematology is unremarkable, chemistry reveals a potassium of 3.4, anion gap 17.4, BUN 6, creatinine 0.9, glucose 114, magnesium 1.7, troponin less than 0.017, TSH 2.024. 03/27/21 12:33 Discussed the patient's lab results and chest x-ray and EKG results. Patient symptoms are all likely due to anxiety has there has been a lot more stress in her life lately. Discussed with the patient the need to restart her Pristiq. She states she only has a few of these left so I will give her about 10 days worth until she can follow-up with her primary care provider, Seda Owens. I will also restart her on her trazodone. I will give her just enough to get by approximately 10 until she can make her follow-up appointment with Seda. Hospital social studies department chair is in to see the patient just after I discussed her lab results. She will be given resources for local counseling services in [facility]. I also did discuss with the patient the importance of receiving some counseling. She does agree. She states she will follow up with Seda in about a week to 10 days. I also discussed the necessity for her to stop drinking and she does agree that she will do this. She also agrees that if she starts feeling like she is suicidal that she will return to the emergency department. Departure - Departure Time of Disposition: 12:35 Disposition: Home, Self-Care 01 Condition: Good Clinical Impression: Anxiety with depression Prescriptions: Desvenlafaxine Succinate [Pristiq] 50 mg PO DAILY #15 tab.er.24h traZODone 50 mg PO BEDTIME #15 tab Instructions: Managing Anxiety, Adult Referrals: Seda Owens PA-C [Primary Care Provider] - Forms: ED Department Discharge Additional Instructions: You were seen in the emergency department today with feelings of your heart racing with associated numbness to your lips and mouth and arms hands and legs. Full cardiac work-up was completed and this was unremarkable. The cause of your symptoms is likely due to anxiety associated with depression. It is strongly recommended that you stop drinking at this time as this only worsens your anxiety and depression associated symptoms. I have represcribed your Pristiq, enough for 15 days worth. I have sent a prescription to your pharmacy for this. I have also sent a prescription for your trazodone for which you have taken in the past. You may start taking this at bedtime again as you have taken in the past 1 tab. Our hospital social studies department chair, Chastity, did give you some information regarding counseling services. I strongly recommend that you reach out to them as this will help you significantly. As we discussed, should you have any thoughts of suicide or harming yourself, you will need to return to the em ergency department immediately. Also recommend that you follow-up with your primary care provider, Seda Owens within about 1 week. Call today to schedule your appointment. She will need to manage your Pristiq and trazodone prescriptions. Should your condition worsen or change, do not hesitate returning to the emergency department. Sepsis Event Note (ED) - Evaluation Sepsis Screening Result: No Definite Risk - Focused Exam Vital Signs: Vital Signs Temp Pulse Resp BP Pulse Ox 03/27/21 11:09 96.3 F L 65 18 107/89 98 - My Orders Last 24 Hours: My Active Orders 03/27/21 11:27 EKG Documentation Completion [RC] STAT - Assessment/Plan Last 24 Hours: My Active Orders 03/27/21 11:27 EKG Documentation Completion [RC] STAT
--- NOTE | 2021-03-27 12:03 | CR ---
Chest: Portable view of the chest was obtained. Comparison: Prior chest x-ray of 07/23/16. Heart size and mediastinum are normal. Lungs are clear with no acute parenchymal change. No acute osseous abnormality is appreciated. Impression: 1. Nothing acute is appreciated on portable chest x-ray. Diagnostic code #1
--- NOTE | 2021-03-27 12:46 | PCM.EKG ---
#1 Interpretation EKG Date: 03/27/21 Time: 11:32 Rhythm: NSR Rate (Beats/Min): 60 [place]: Normal P-Wave: Present QRS: Normal ST-T: Normal QT: Normal EKG Interpretation Comments: Per Dr. Castro interpretation: Sinus rhythm at 60; early R wave transitionconsider RVH versus septal hypertrophy LAD -29 degrees; decreased voltage limb and precordial leads; poor R wave progression consider old anterior wall CO; tall R wave in lead Iconsider LVH
== END 2021-03-27 12:50 | disposition home or self-care (01) ==
LOC: JD.ED 10:58
DX: F41.8 Other specified anxiety disorders (principal); E66.9 Obesity, unspecified; Z68.30 Body mass index [BMI] 30.0-30.9, adult; Z87.891 Personal history of nicotine dependence
CPT/HCPCS: 36415; 71045; 71045-26; 80053; 83735; 84443; 84484; 85025; 93005; 99284; 99285-25

== ENCOUNTER 2022-01-01 21:42 | Emergency (ER) | payer BC, OTHER ==
[2022-01-01 22:01] VITALS: BP 143/84; PULSE 72
[2022-01-01] MEDS ORDERED: Albuterol/Ipratropium 3.0-0.5 MG/3 ML Neb Soln NEB ONE (22:20)
[2022-01-01] MEDS ORDERED: Albuterol 0.083% 2.5 MG/3 ML Neb Soln NEB ONE (23:14)
[2022-01-01 23:38] LABS: CORONAVIRUS COVID-19 NAA NEGATIVE (NEGATIVE)
[2022-01-02] MEDS ORDERED: Albuterol 0.083% 2.5 MG/3 ML Neb Soln NEB ONE (00:04)
[2022-01-02] MEDS: predniSONE 20 MG Tab PO STA (00:17)
== END 2022-01-02 01:31 | disposition home or self-care (01) ==
LOC: JD.ED 21:42
DX: R06.2 Wheezing (principal); R06.00 Dyspnea, unspecified; E66.9 Obesity, unspecified; Z86.16 Personal history of COVID-19; Z68.32 Body mass index [BMI] 32.0-32.9, adult; Z20.822 Contact with and (suspected) exposure to COVID-19
CPT/HCPCS: 0240U; 36415; 71046; 80053; 83605; 83880; 84484; 85025; 85379; 87040; 93005; 94640; 99285; J7512; 93010; J7620-GY

== ENCOUNTER 2023-01-10 16:24 | Emergency (ER) | payer SELFPAY ==
[2023-01-10] MEDS ORDERED: Potassium Chloride 20 MEQ Tab.ER PO ONE ×2 (16:51→18:22)
[2023-01-10] MEDS ORDERED: Ondansetron 4 MG Tab.DIS PO ONE (17:05)
[2023-01-10 18:55] VITALS: BP 117/82; PULSE 88
== END 2023-01-10 18:55 | disposition home or self-care (01) ==
LOC: JD.ED 16:24
DX: K52.9 Noninfective gastroenteritis and colitis, unspecified (principal); E87.6 Hypokalemia; E83.42 Hypomagnesemia; E66.9 Obesity, unspecified; Z68.29 Body mass index [BMI] 29.0-29.9, adult; Z86.16 Personal history of COVID-19
CPT/HCPCS: 36415; 83735; 84443; 99284; A9270

== ENCOUNTER 2023-03-03 17:06 | Emergency (ER) | payer SELFPAY ==
[2023-03-03] MEDS ORDERED: Sodium Chloride 0.9% 10 ML Syringe FLUSH PRN (17:24)
[2023-03-03] MEDS ORDERED: HYDROmorphone 0.5 MG/0.5 ML Syringe IVPUSH ONE ×2 (17:28→21:42)
[2023-03-03] MEDS ORDERED: Ondansetron 4 MG/2 ML SDV IVPUSH ONE (17:28)
[2023-03-03] MEDS ORDERED: Sodium Chloride 0.9% 1,000 ML IV ONE ×2 (17:28→20:05)
[2023-03-03 18:56] LABS: BASOPHILS ABSOLUTE AUTO 0.05 K/mm3 (0.01-0.08); BASOPHILS PERCENT AUTO 0.9 % (0.1-1.2); EOSINOPHILS PERCENT AUTO 3.6 (0.7-5.8); HEMATOCRIT 42.2 % (34.1-44.9); HEMOGLOBIN 15.1 gm/dl (11.2-15.7); IMMATURE GRAN ABSOLUTE AUTO 0.01 K/mm3 (0.00-0.10); IMMATURE GRAN PERCENT AUTO 0.2 % (<=1.0); LYMPHOCYTES ABSOLUTE AUTO 2.08 K/mm3 (1.18-3.74); LYMPHOCYTES PERCENT AUTO 37.3 % (19.3-51.7); MEAN CORPUSCULAR HEMOGLOBIN 34.6 pg (25.6-32.2); MEAN CORPUSCULAR HGB CONC 35.8 g/dl (32.2-35.5); MEAN CORPUSCULAR VOLUME 96.8 fl (79.4-94.8); MEAN PLATELET VOLUME 9.6 fl (9.4-12.3); MONOCYTES ABSOLUTE AUTO 0.66 K/mm3 (0.24-0.36); MONOCYTES PERCENT AUTO 11.8 % (4.7-12.5); NEUTROPHILS ABSOLUTE AUTO 2.58 K/mm3 (1.56-6.13); NEUTROPHILS PERCENT AUTO 46.2 % (34.0-71.1); PLATELET COUNT,PLT 362 K/mm3 (182-369); RED BLOOD CELL COUNT 4.36 M/mm3 (3.98-5.22); WHITE BLOOD CELL COUNT,WBC 5.58 K/mm3 (3.98-10.04)
[2023-03-03 20:03] LABS: A/G RATIO 0.8 (1-2); ALBUMIN 3.2 g/dl (3.4-5.0); ANION GAP 9.4 (5-15); BILIRUBIN TOTAL 1.5 mg/dL (0.2-1.0); BUN/CREATININE RATIO 3.3 (14-18); CALCIUM 6.9 mg/dL (8.5-10.1); CREATININE 0.9 mg/dL (0.55-1.02); EST CRCL DRUG DOSING (CG) 85.65 mL/min; MAGNESIUM 0.9 mg/dL (1.8-2.4)
[2023-03-03 20:04] LABS: POTASSIUM,K 2.4 mEq/L (3.5-5.1)
[2023-03-03] MEDS ORDERED: Potassium Chloride 20 MEQ Tab.ER PO ONE (20:05)
[2023-03-03] MEDS: Potassium Chloride 10 MEQ in Premix Bag 1 BAG IV SCH ×3 (20:40→22:51)
[2023-03-03] MEDS: Magnesium Sulfate/Water 2 GM in Premix Bag 1 BAG IV SCH ×2 (20:41→22:12)
[2023-03-04] MEDS ORDERED: Potassium Chloride 20 MEQ Tab.ER PO ONE
[2023-03-04] MEDS: Potassium Chloride 10 MEQ in Premix Bag 1 BAG IV SCH (00:03)
[2023-03-04 02:14] LABS: ANION GAP 9.4 (5-15); BUN/CREATININE RATIO 3.8 (14-18); CALCIUM 6.9 mg/dL (8.5-10.1); CREATININE 0.8 mg/dL (0.55-1.02); EST CRCL DRUG DOSING (CG) 96.36 mL/min; MAGNESIUM 2.6 mg/dL (1.8-2.4); POTASSIUM,K 3.4 mEq/L (3.5-5.1)
[2023-03-04 05:04] VITALS: BP 112/76; PULSE 82
== END 2023-03-04 04:47 | disposition home or self-care (01) ==
LOC: JD.ED 17:06
DX: M79.604 Pain in right leg (principal); M79.605 Pain in left leg; E87.6 Hypokalemia; E83.42 Hypomagnesemia; J45.909 Unspecified asthma, uncomplicated; K21.9 Gastro-esophageal reflux disease without esophagitis; E66.9 Obesity, unspecified; Z68.29 Body mass index [BMI] 29.0-29.9, adult; Z86.16 Personal history of COVID-19
CPT/HCPCS: 36415; 80048; 80053; 83735; 85025; 96361; 96365; 96366; 96367; 96368; 96375; 96376; 99284; A9270; J1170; J2405; J3475; J3480; J3490; J7030

== ENCOUNTER 2023-03-15 08:38 | Emergency (ER) | payer SELFPAY ==
[2023-03-15] MEDS ORDERED: Ondansetron 4 MG/2 ML SDV IVPUSH ONE (09:18)
[2023-03-15] MEDS ORDERED: Sodium Chloride 0.9% 10 ML Syringe FLUSH PRN (09:18)
[2023-03-15 09:29] LABS: BASOPHILS ABSOLUTE AUTO 0.03 K/mm3 (0.01-0.08); BASOPHILS PERCENT AUTO 0.5 % (0.1-1.2); EOSINOPHILS ABSOLUTE AUTO 0.08 K/mm3 (0.04-0.36); EOSINOPHILS PERCENT AUTO 1.3 (0.7-5.8); HEMATOCRIT 42.7 % (34.1-44.9); HEMOGLOBIN 15.4 gm/dl (11.2-15.7); IMMATURE GRAN ABSOLUTE AUTO 0.01 K/mm3 (0.00-0.10); IMMATURE GRAN PERCENT AUTO 0.2 % (<=1.0); LYMPHOCYTES ABSOLUTE AUTO 1.92 K/mm3 (1.18-3.74); LYMPHOCYTES PERCENT AUTO 30.7 % (19.3-51.7); MEAN CORPUSCULAR HEMOGLOBIN 34.1 pg (25.6-32.2); MEAN CORPUSCULAR HGB CONC 36.1 g/dl (32.2-35.5); MEAN CORPUSCULAR VOLUME 94.7 fl (79.4-94.8); MEAN PLATELET VOLUME 9.6 fl (9.4-12.3); MONOCYTES ABSOLUTE AUTO 0.74 K/mm3 (0.24-0.36); MONOCYTES PERCENT AUTO 11.8 % (4.7-12.5); NEUTROPHILS ABSOLUTE AUTO 3.47 K/mm3 (1.56-6.13); NEUTROPHILS PERCENT AUTO 55.5 % (34.0-71.1); PLATELET COUNT,PLT 406 K/mm3 (182-369); RED BLOOD CELL COUNT 4.51 M/mm3 (3.98-5.22); WHITE BLOOD CELL COUNT,WBC 6.25 K/mm3 (3.98-10.04)
[2023-03-15] MEDS ORDERED: Sodium Chloride 0.9% 1,000 ML IV SCH (09:30)
[2023-03-15] MEDS ORDERED: HYDROmorphone 0.5 MG/0.5 ML Syringe IVPUSH ONE ×2 (09:45→12:43)
[2023-03-15 10:05] LABS: A/G RATIO 0.9 (1-2); ALBUMIN 3.7 g/dl (3.4-5.0); ANION GAP 17.7 (5-15); BILIRUBIN TOTAL 1.5 mg/dL (0.2-1.0); BUN/CREATININE RATIO 3.8 (14-18); CREATININE 0.8 mg/dL (0.55-1.02); EST CRCL DRUG DOSING (CG) 96.36 mL/min; MAGNESIUM 1.3 mg/dL (1.8-2.4); POTASSIUM,K 2.7 mEq/L (3.5-5.1); PROTEIN TOTAL,TP 7.8 g/dl (6.4-8.2)
[2023-03-15 10:06] LABS: CALCIUM 8.6 mg/dL (8.5-10.1)
[2023-03-15] MEDS ORDERED: Magnesium Sulfate/Water 2 GM in Premix Bag 1 BAG IV ONE (10:14)
[2023-03-15] MEDS: Potassium Chloride 10 MEQ in Premix Bag 1 BAG IV SCH ×4 (10:30→13:33)
[2023-03-15 14:45] VITALS: BP 107/60; PULSE 88
== END 2023-03-15 14:43 | disposition home or self-care (01) ==
LOC: JD.ED 08:38
DX: R20.0 Anesthesia of skin (principal); E83.42 Hypomagnesemia; E87.6 Hypokalemia; J45.909 Unspecified asthma, uncomplicated; E66.9 Obesity, unspecified; Z68.28 Body mass index [BMI] 28.0-28.9, adult
CPT/HCPCS: 36415; 80053; 82607; 83735; 84703; 85025; 96361; 96365; 96366; 96367; 96368; 96375; 96376; 99284; J1170; J2405; J3475; J3480; J3490; J7030

== ENCOUNTER 2023-03-21 17:15 | Emergency (ER) | payer SELFPAY ==
[2023-03-21] MEDS ORDERED: Sodium Chloride 0.9% 10 ML Syringe FLUSH PRN (17:29)
[2023-03-21 17:40] LABS: BASOPHILS ABSOLUTE AUTO 0.05 K/mm3 (0.01-0.08); BASOPHILS PERCENT AUTO 0.8 % (0.1-1.2); EOSINOPHILS ABSOLUTE AUTO 0.03 K/mm3 (0.04-0.36); EOSINOPHILS PERCENT AUTO 0.5 (0.7-5.8); HEMATOCRIT 45.3 % (34.1-44.9); HEMOGLOBIN 15.7 gm/dl (11.2-15.7); IMMATURE GRAN ABSOLUTE AUTO 0.02 K/mm3 (0.00-0.10); IMMATURE GRAN PERCENT AUTO 0.3 % (<=1.0); LYMPHOCYTES PERCENT AUTO 31.8 % (19.3-51.7); MEAN CORPUSCULAR HEMOGLOBIN 32.8 pg (25.6-32.2); MEAN CORPUSCULAR HGB CONC 34.7 g/dl (32.2-35.5); MEAN CORPUSCULAR VOLUME 94.8 fl (79.4-94.8); MEAN PLATELET VOLUME 9.1 fl (9.4-12.3); MONOCYTES ABSOLUTE AUTO 0.82 K/mm3 (0.24-0.36); MONOCYTES PERCENT AUTO 13.7 % (4.7-12.5); NEUTROPHILS ABSOLUTE AUTO 3.15 K/mm3 (1.56-6.13); NEUTROPHILS PERCENT AUTO 52.9 % (34.0-71.1); PLATELET COUNT,PLT 424 K/mm3 (182-369); RED BLOOD CELL COUNT 4.78 M/mm3 (3.98-5.22); WHITE BLOOD CELL COUNT,WBC 5.97 K/mm3 (3.98-10.04)
[2023-03-21 18:01] LABS: A/G RATIO 0.9 (1-2); ALBUMIN 3.9 g/dl (3.4-5.0); ANION GAP 15.8 (5-15); BILIRUBIN TOTAL 1.2 mg/dL (0.2-1.0); CALCIUM 9.4 mg/dL (8.5-10.1); EST CRCL DRUG DOSING (CG) 77.08 mL/min; POTASSIUM,K 2.8 mEq/L (3.5-5.1); PROTEIN TOTAL,TP 8.3 g/dl (6.4-8.2)
[2023-03-21] MEDS ORDERED: Magnesium Sulfate/Water 4 GM in Premix Bag 1 BAG IV ONE (18:47)
[2023-03-21] MEDS ORDERED: Sodium Chloride 0.9% 1,000 ML IV STA (18:47)
[2023-03-21] MEDS ORDERED: Metoclopramide 10 MG/2 ML SDV IVPUSH ONE (18:48)
[2023-03-21] MEDS ORDERED: HYDROmorphone 0.5 MG/0.5 ML Syringe IVPUSH ONE (18:49)
[2023-03-21] MEDS: Potassium Chloride 10 MEQ in Premix Bag 1 BAG IV SCH ×4 (19:21→22:28)
[2023-03-21] MEDS ORDERED: Potassium Chloride 20 MEQ Tab.ER PO ONE (21:09)
[2023-03-21] MEDS ORDERED: Ketorolac 30 MG/ML SDV IVPUSH ONE (21:59)
[2023-03-21] MEDS ORDERED: Potassium Chloride 20 MEQ Tab.ER ONE (23:32)
[2023-03-21 23:40] VITALS: BP 124/77; PULSE 91
== END 2023-03-21 23:40 | disposition home or self-care (01) ==
LOC: JD.ED 17:15
DX: E87.6 Hypokalemia (principal); E83.42 Hypomagnesemia; M79.661 Pain in right lower leg; M79.662 Pain in left lower leg; R20.0 Anesthesia of skin; R11.10 Vomiting, unspecified; J45.909 Unspecified asthma, uncomplicated; E66.9 Obesity, unspecified; Z68.27 Body mass index [BMI] 27.0-27.9, adult; Z86.16 Personal history of COVID-19; Z79.899 Other long term (current) drug therapy
CPT/HCPCS: 36415; 80053; 83735; 85025; 96365; 96366; 96367; 96368; 96375; 96376; 99284; A9270; J1170; J1885; J2765; J3475; J3480; J3490; J7030

== ENCOUNTER 2023-03-28 11:10 | Emergency (ER) | payer MEDICAID ==
[2023-03-28 11:22] VITALS: BP 133/86; PULSE 122
[2023-03-28] MEDS ORDERED: Ketorolac 60 MG/2 ML SDV IM ONE (11:28)
== END 2023-03-28 12:41 | disposition home or self-care (01) ==
LOC: JD.ED 11:10
DX: S93.402A Sprain of unspecified ligament of left ankle, initial encounter (principal); S93.602A Unspecified sprain of left foot, initial encounter; J45.909 Unspecified asthma, uncomplicated; E66.9 Obesity, unspecified; Z68.27 Body mass index [BMI] 27.0-27.9, adult; Z79.899 Other long term (current) drug therapy; W19.XXXA Unspecified fall, initial encounter
CPT/HCPCS: 73610; 73630; 96372; 99283; J1885

== ENCOUNTER 2023-04-04 13:30 | Emergency (ER) | payer MEDICAID ==
[2023-04-04 14:16] LABS: BASOPHILS ABSOLUTE AUTO 0.03 K/mm3 (0.01-0.08); BASOPHILS PERCENT AUTO 0.4 % (0.1-1.2); EOSINOPHILS ABSOLUTE AUTO 0.07 K/mm3 (0.04-0.36); EOSINOPHILS PERCENT AUTO 0.8 (0.7-5.8); HEMATOCRIT 40.6 % (34.1-44.9); HEMOGLOBIN 14.1 gm/dl (11.2-15.7); IMMATURE GRAN ABSOLUTE AUTO 0.03 K/mm3 (0.00-0.10); IMMATURE GRAN PERCENT AUTO 0.4 % (<=1.0); LYMPHOCYTES ABSOLUTE AUTO 1.84 K/mm3 (1.18-3.74); LYMPHOCYTES PERCENT AUTO 21.9 % (19.3-51.7); MEAN CORPUSCULAR HEMOGLOBIN 33.9 pg (25.6-32.2); MEAN CORPUSCULAR HGB CONC 34.7 g/dl (32.2-35.5); MEAN CORPUSCULAR VOLUME 97.6 fl (79.4-94.8); MEAN PLATELET VOLUME 8.8 fl (9.4-12.3); MONOCYTES ABSOLUTE AUTO 0.66 K/mm3 (0.24-0.36); MONOCYTES PERCENT AUTO 7.8 % (4.7-12.5); NEUTROPHILS ABSOLUTE AUTO 5.78 K/mm3 (1.56-6.13); NEUTROPHILS PERCENT AUTO 68.7 % (34.0-71.1); PLATELET COUNT,PLT 406 K/mm3 (182-369); RED BLOOD CELL COUNT 4.16 M/mm3 (3.98-5.22); WHITE BLOOD CELL COUNT,WBC 8.41 K/mm3 (3.98-10.04)
[2023-04-04 14:28] LABS: A/G RATIO 0.7 (1-2); ALBUMIN 3.1 g/dl (3.4-5.0); BILIRUBIN TOTAL 0.4 mg/dL (0.2-1.0); CALCIUM 8.1 mg/dL (8.5-10.1); CREATININE 0.8 mg/dL (0.55-1.02); EST CRCL DRUG DOSING (CG) 96.36 mL/min; MAGNESIUM 1.5 mg/dL (1.8-2.4); PROTEIN TOTAL,TP 7.7 g/dl (6.4-8.2)
[2023-04-04] MEDS ORDERED: Sodium Chloride 0.9% 1,000 ML IV ONE (14:29)
[2023-04-04] MEDS ORDERED: HYDROmorphone 0.5 MG/0.5 ML Syringe IVPUSH ONE (14:30)
[2023-04-04 14:38] LABS: BUN/CREATININE RATIO 2.5 (14-18)
[2023-04-04] MEDS ORDERED: Potassium Chloride 20 MEQ Tab.ER PO ONE (14:58)
[2023-04-04] MEDS ORDERED: Magnesium Sulfate/Water 4 GM in Premix Bag 1 BAG IV ONE (14:59)
[2023-04-04] MEDS: Potassium Chloride 10 MEQ in Premix Bag 1 BAG IV SCH ×4 (15:27→19:00)
[2023-04-04] MEDS ORDERED: Iopamidol 755 Mg/ML 100 ML Bottle IVPUSH ONE (16:25)
[2023-04-04] MEDS ORDERED: Sodium Chloride 0.9% 100 ML IV SCH (16:30)
[2023-04-04] MEDS ORDERED: Acetaminophen 325 MG/10.15 ML ML PO ONE (16:46)
[2023-04-04] MEDS ORDERED: methylPREDNISolone Sodium Succinate 125 MG/2 ML SDV IVPUSH ONE (18:23)
[2023-04-04 20:35] VITALS: BP 122/88; PULSE 113
== END 2023-04-04 20:25 | disposition home or self-care (01) ==
LOC: JD.ED 13:30
DX: G62.9 Polyneuropathy, unspecified (principal); E66.9 Obesity, unspecified; Z68.30 Body mass index [BMI] 30.0-30.9, adult; Z86.16 Personal history of COVID-19; Z79.899 Other long term (current) drug therapy
CPT/HCPCS: 36415; 70450; 71275; 80053; 83735; 85025; 85379; 93005; 96361; 96365; 96366; 96367; 96368; 96375; 99285; A9270; J1170; J2930; J3475; J3480; J3490; J7030; Q9967; 93010; 99284

== ENCOUNTER 2023-04-05 17:42 | Emergency (ER) | payer MEDICAID ==
[2023-04-05 18:46] LABS: EOSINOPHILS PERCENT AUTO 0 (0.7-5.8); HEMOGLOBIN 13.5 gm/dl (11.2-15.7); IMMATURE GRAN ABSOLUTE AUTO 0.06 K/mm3 (0.00-0.10); IMMATURE GRAN PERCENT AUTO 0.6 % (<=1.0); LYMPHOCYTES ABSOLUTE AUTO 1.15 K/mm3 (1.18-3.74); LYMPHOCYTES PERCENT AUTO 12.1 % (19.3-51.7); MEAN CORPUSCULAR HEMOGLOBIN 34.2 pg (25.6-32.2); MEAN CORPUSCULAR HGB CONC 34.6 g/dl (32.2-35.5); MEAN CORPUSCULAR VOLUME 98.7 fl (79.4-94.8); MEAN PLATELET VOLUME 8.4 fl (9.4-12.3); MONOCYTES ABSOLUTE AUTO 0.65 K/mm3 (0.24-0.36); MONOCYTES PERCENT AUTO 6.8 % (4.7-12.5); NEUTROPHILS ABSOLUTE AUTO 7.63 K/mm3 (1.56-6.13); NEUTROPHILS PERCENT AUTO 80.5 % (34.0-71.1); PLATELET COUNT,PLT 422 K/mm3 (182-369); RED BLOOD CELL COUNT 3.95 M/mm3 (3.98-5.22); WHITE BLOOD CELL COUNT,WBC 9.49 K/mm3 (3.98-10.04)
[2023-04-05 19:07] LABS: A/G RATIO 1.8 (1-2); ALANINE AMINOTRANSFERASE,ALT 45 U/L (14-59); ALKALINE PHOSPHATASE 69 U/L (46-116); ASPARTATE AMNIOTRANSFERASE,AST 58 U/L (15-37); BILIRUBIN TOTAL 0.3 mg/dL (0.2-1.0); BLOOD UREA NITROGEN,BUN 1 mg/dL (7-18); BUN/CREATININE RATIO 1.4 (14-18); CALCIUM 7.6 mg/dL (8.5-10.1); CARBON DIOXIDE,CO2 18 mEq/L (21-32); CHLORIDE,CL 100 mEq/L (98-107); CREATININE 0.7 mg/dL (0.55-1.02); ESTIMATED GFR 116 mL/min (>60); GLUCOSE RANDOM 166 mg/dL (70-99); MAGNESIUM 1.8 mg/dL (1.8-2.4); SODIUM,NA 134 mEq/L (136-145)
[2023-04-05] MEDS ORDERED: predniSONE 10 MG Tab PO ONE (19:25)
[2023-04-05 19:31] LABS: PROTEIN TOTAL,TP 7.6 g/dl (6.4-8.2)
[2023-04-05] MEDS ORDERED: Acetaminophen 325 MG Tab PO ONE (19:52)
[2023-04-05 20:44] VITALS: BP 124/56; PULSE 78
== END 2023-04-05 20:42 | disposition home or self-care (01) ==
LOC: JD.ED 17:42
DX: R53.1 Weakness (principal); G62.9 Polyneuropathy, unspecified; E66.9 Obesity, unspecified; K21.9 Gastro-esophageal reflux disease without esophagitis; J45.909 Unspecified asthma, uncomplicated; Z79.899 Other long term (current) drug therapy
CPT/HCPCS: 36415; 80053; 80307; 83735; 85025; 99285; A9270; J7512; 99283

== ENCOUNTER 2023-04-07 14:41 | Emergency (ER) | payer MEDICAID ==
[2023-04-07] MEDS ORDERED: Sodium Chloride 0.9% 10 ML Syringe FLUSH PRN (14:54)
[2023-04-07 15:26] LABS: BASOPHILS ABSOLUTE AUTO 0.01 K/mm3 (0.01-0.08); BASOPHILS PERCENT AUTO 0.1 % (0.1-1.2); EOSINOPHILS ABSOLUTE AUTO 0.01 K/mm3 (0.04-0.36); EOSINOPHILS PERCENT AUTO 0.1 (0.7-5.8); HEMOGLOBIN 13.1 gm/dl (11.2-15.7); IMMATURE GRAN ABSOLUTE AUTO 0.07 K/mm3 (0.00-0.10); IMMATURE GRAN PERCENT AUTO 0.8 % (<=1.0); LYMPHOCYTES ABSOLUTE AUTO 1.36 K/mm3 (1.18-3.74); LYMPHOCYTES PERCENT AUTO 14.6 % (19.3-51.7); MEAN CORPUSCULAR HEMOGLOBIN 33.9 pg (25.6-32.2); MEAN CORPUSCULAR HGB CONC 34.5 g/dl (32.2-35.5); MEAN CORPUSCULAR VOLUME 98.4 fl (79.4-94.8); MEAN PLATELET VOLUME 8.8 fl (9.4-12.3); MONOCYTES PERCENT AUTO 3.2 % (4.7-12.5); NEUTROPHILS ABSOLUTE AUTO 7.56 K/mm3 (1.56-6.13); NEUTROPHILS PERCENT AUTO 81.2 % (34.0-71.1); PLATELET COUNT,PLT 336 K/mm3 (182-369); RED BLOOD CELL COUNT 3.86 M/mm3 (3.98-5.22); WHITE BLOOD CELL COUNT,WBC 9.31 K/mm3 (3.98-10.04)
[2023-04-07 15:43] LABS: A/G RATIO 0.8 (1-2); ALBUMIN 3.2 g/dl (3.4-5.0); ANION GAP 15.7 (5-15); BILIRUBIN TOTAL 1.1 mg/dL (0.2-1.0); BUN/CREATININE RATIO 14.3 (14-18); CALCIUM 9.1 mg/dL (8.5-10.1); CREATININE 0.7 mg/dL (0.55-1.02); EST CRCL DRUG DOSING (CG) 110.12 mL/min; MAGNESIUM 1.9 mg/dL (1.8-2.4); POTASSIUM,K 3.7 mEq/L (3.5-5.1); PROTEIN TOTAL,TP 7.2 g/dl (6.4-8.2)
[2023-04-07] MEDS ORDERED: Acetaminophen/oxyCODONE 325-5 MG Tab PO ONE (16:06)
[2023-04-07] MEDS ORDERED: Ketorolac 60 MG/2 ML SDV IM ONE (18:34)
[2023-04-07 19:09] VITALS: BP 128/78; PULSE 110
== END 2023-04-07 19:05 | disposition home or self-care (01) ==
LOC: JD.ED 14:41
DX: R53.1 Weakness (principal); J45.909 Unspecified asthma, uncomplicated; E66.9 Obesity, unspecified; Z68.27 Body mass index [BMI] 27.0-27.9, adult; Z86.16 Personal history of COVID-19; Z79.899 Other long term (current) drug therapy
CPT/HCPCS: 36415; 72148; 80053; 80307; 83735; 85025; 96372; 99285; A9270; J1885